=== PATIENT | male | born 1955 | race Caucasian/White ===

== ENCOUNTER 2018-03-03 16:46 | Inpatient (IN) | payer MEDICARE ==
[~2018-03-03] VITALS: Ht 172.7 cm; Wt 79.9 kg
--- NOTE | ~2018-03-03 | CON ---
[place], [place] REPORT OF CONSULTATION NAME: [facility] JR [id number] UN[facility] #: [id number] ROOM: 401 DOCTOR: EVELIN REARDON DPM BIRTHDATE: [birth year] DOS: 03/04/2018 SUBJECTIVE: This 62-year-old white male is seen as consult for evaluation of an infection in his right foot. The patient states he has not seen a doctor in 2 years. He is diabetic, has not taken any medications for 2 years. He states he has had a wound on the bottom of his right foot for 5 months and it has gotten worse over the past week or so. He has been using Neosporin, but it did not improve. His foot became very red, swollen and warm to touch. He denies any recent trauma or injury. The patient is also hypertensive, but has not taken any medication for 2 years. PAST MEDICAL HISTORY: Positive for diabetes and hypertension as well as he has a recent diabetic foot infection. ALLERGIES: LATEX and PENICILLINS. CURRENT MEDICATIONS: Include Lovenox, Glucophage, Zestril, K-Phos, clindamycin, insulin, Catapres, Zofran. OBJECTIVE: Upon lower extremity physical examination, DP pedal pulses are palpable and PT pedal pulses mildly decreased. Hair growth is present on both feet. Diminished sensation is seen in both feet at this time. This is consistent with neuropathy. The patient has edema and erythema noted to the first MPJ right foot, both dorsally and plantarly. This erythema extends dorsally to the second MPJ and dorsal forefoot. There is a wound noted at the medial first metatarsal as well as plantar first metatarsal head. There is sinus tract noted from the medial wound to the dorsal forefoot and there is a sinus tract down to bone from the plantar wound down to the sesamoid and first metatarsal head. There is some mild purulent drainage noted. There is no significant malodor. There is no necrotic or gangrenous tissue. No crepitation tissues to palpation. His MRI is still pending. White blood cell count was down to 9.3 today. The patient is afebrile. ASSESSMENT: Diabetes; diabetic foot ulcer, right foot with infection; probable osteomyelitis. PLAN: Consult is performed. I discussed with the patient that he has an infection in his right foot. He needs to go to surgery for incision of the area; drainage of any abscess; bone biopsy and flushing out the area. This gives him the best chance of reducing complications such as further surgery and amputation. I discussed if he does not do this, he puts himself at risk for limb loss, sepsis, and loss of life. He is agreeable to the surgery. We will try to set this up today. He has not eaten since 08:30. We will set him up for the above-mentioned procedure and will follow up with him over the weekend. Thank you for the opportunity to take part in care of this patient. [place], [place] REPORT OF CONSULTATION NAME: LILA DANIELS JR UNIT #: [id number] ROOM: [facility] DOCTOR: EVELIN REARDON DPM BIRTHDATE: [birth year] EVELIN REARDON DPM CM:CONSTR:REPORT OF CONSULTATION 1203 03/04/18 1417 interface
--- NOTE | ~2018-03-03 | PR ---
[place], [place] PROGRESS NOTE NAME: [id number] UN[facility] #: [id number] ROOM: 401 DOCTOR: EVELIN REARDON DPM BIRTHDATE: [birth year] DOS: 03/07/2018 SUBJECTIVE: This patient is seen postop day #3 status post incision and drainage, bone biopsy, right foot. He states he is feeling well, only time he gets pain is when they change the bandage. Denies fever, chills, nausea, vomiting or night sweats. OBJECTIVE: Upon removal of the bandage and the packing. There is no purulent drainage. There is minimal serous drainage. There is continued decreased in edema and erythema. No increased temperature. The foot is progressing nicely at this time. Incision sites are clean and granular with no necrotic tissue. ASSESSMENT: Postoperative day #3 incision and drainage, bone biopsy, right foot; improving infection, right foot; osteomyelitis. PLAN: Packing and dressing is changed. Continue partial weightbearing on the right foot with a walker. Again, when he is discharged, change the packing once daily with a dry dressing. We will follow him up as an outpatient if he gets discharged today. If not, we will see him tomorrow in the hospital. EVELIN REARDON DPM CM:PNTRANS [phone] EVELIN REARDON DPM 03/07/18 1403 interface
--- NOTE | ~2018-03-03 | PR ---
[place], [place] PROGRESS NOTE NAME: LILA DANIELS JR UNIT #: [id number] ROOM: 401 DOCTOR: ALLISON VENTURAFEBRUARY BIRTHDATE: [birth year] DOS: SUBJECTIVE: The patient is a 62-year-old male who is being followed for right foot osteomyelitis and diabetic foot infection with group B strep bacteremia. Group B has grown from his wound cultures. He is on vancomycin. He has a penicillin allergy, but does not know what his reaction is. He only states that he would if he took it. What he is basing that on, he does not know. So, he is tolerating the vancomycin without issues. Denies fevers, chills, nausea, vomiting or diarrhea. No rash or itch. No cough or shortness of breath. LABORATORY DATA: No labs done today. Last vancomycin trough was 15.6. Repeat blood cultures from remained sterile. CURRENT MEDICATIONS: Lovenox, Glucophage, vancomycin, Zestril, K-phos, Humalog, Catapres, Restoril, Zofran, milk of mag, Dulcolax, Danevang, and Tylenol. PHYSICAL EXAMINATION: VITAL SIGNS: Temperature 98.2, pulse 88, respirations 20, BP 182/86. GENERAL: Alert and oriented 62-year-old male in no acute distress. HEENT: Normocephalic. NECK: Supple. LUNGS: Clear to auscultation bilaterally. Respirations even and unlabored. HEART: Regular rhythm. No murmur appreciated. ABDOMEN: Soft and nondistended. EXTREMITIES: No edema. Right foot is dressed, wearing a fracture shoe. SKIN: Warm, dry, free of rashes. ASSESSMENT: Right foot osteomyelitis and diabetic foot infection, status post surgical debridement, currently on IV vancomycin. He also had a group B strep bacteremia. PLAN: We will continue the IV vancomycin and anticipate 6 weeks of IV antibiotics, needs to have a PICC line placed. Case discussed with Dr. Mara Charlton. FEBRUARY AUDREY COOPER [place], [place] PROGRESS NOTE NAME: LILA DANIELS JR UNIT #: [id number] ROOM: [facility] DOCTOR: ALLISON VENTURA,FEBRUARY BIRTHDATE: [birth year] MARA CHARLTON MD CM:PNTRANS 55 [phone] ALLISON VENTURA 03/06/182049 interface
--- NOTE | ~2018-03-03 | PR ---
[place], [place] PROGRESS NOTE NAME: LILA DANIELS JR UNIT #: [id number] ROOM: 401 DOCTOR: NUHA GORMAN MD BIRTHDATE: [birth year] DOS: 03/08/2018 SUBJECTIVE: The patient denies having any fever, chills, nausea, vomiting. He is upset about his placement and is quite abusive. He had his PICC line inserted in his right upper arm. No pain around the site. PHYSICAL EXAMINATION: GENERAL: Alert, oriented x 3, not in acute distress. HEENT: Atraumatic, normocephalic. PERRLA, EOMI. RESPIRATORY: Air entry bilaterally equal. No wheeze or crackles. CARDIOVASCULAR: S1, S2 normal. No murmur, rubs or gallop. ABDOMEN: Soft, nontender, nondistended, bowel sounds present in all 4 quadrants. EXTREMITIES: Right foot dressing in place. Vitals and labs noted. ASSESSMENT AND PLAN: 1. Right foot diabetic foot ulcer with wound cultures positive for group B Strep. 2. Complicated ulcer with group B strep bacteremia. 3. Right first MTP joint septic arthritis, status post I and D and bone biopsy. Cultures negative, pathology pending. Currently on IV vancomycin twice a day for 6 weeks, end date 04/14/2018. Scripts done. PICC line in right arm. Needs CBC, BMP, vancomycin trough, ESR checked at least twice a week. Follow up with [facility] in [place] with mt in 3-4 weeks, currently waiting for placement. Fiona Gorman MD CM:PNTRANS [phone] NUHA GORMAN MD 03/09/18 0039 interface
--- NOTE | ~2018-03-03 | PR ---
[place], [place] PROGRESS NOTE NAME: LILA DANIELS JR [facility] #: [id number] UNIT #: [id number] ROOM: 401 DOCTOR: EVELIN REARDON DPM BIRTHDATE: [birth year] DOS: 03/06/2018 SUBJECTIVE: The patient presents postop day #2 from incision and drainage of abscess and bone biopsy, right foot. The patient states he has some pain with dressing changes, but overall very little pain in the right foot. Denies fever, chills, nausea, vomiting or night sweats. He is eating well and really states he feels good. OBJECTIVE: Upon removal of the dressing and the packing there is no purulent drainage. There is still some low grade edema and erythema, but significantly reduced from Wednesday. There is again no purulent drainage, no malodor, no signs of remaining abscess. Wounds are clean at this time. ASSESSMENT: Postop day #2 of I and D, bone biopsy of right foot, improving infection of right foot and osteomyelitis of right foot. PLAN: Packing and dressing is changed. Continue with partial weightbearing on the right foot with a walker. Continue with twice daily dressing changes for now. Once he is discharged, he could be once a day IV antibiotics per Infectious Disease. We will follow up tomorrow for re-evaluation. EVELIN REARDON DPM CM:PNTRANS [phone] EVELIN REARDON DPM 03/06/18 2221 interface
--- NOTE | ~2018-03-03 | PR ---
[place], [place] PROGRESS NOTE NAME: LILA DANIELS JR [facility] #: [id number] UNIT #: [id number] ROOM: 401 DOCTOR: TIFFANIE RAMOS DPM BIRTHDATE: [birth year] DOS: 03/08/2018 SUBJECTIVE: The patient was seen for followup post I and D with bone biopsy, right foot. The patient is resting comfortably in bed. OBJECTIVE: Upon removal of packing and dressing, there are no signs of purulent drainage or foul odor. Decreased erythema and edema. No signs of necrotic tissue. No signs of return of abscess, much improved since my last visit with the patient. ASSESSMENT: Post incision and drainage of abscess, right foot. PLAN: Packing and dressing changes visit. Continue partial weightbearing. Continue local wound care, continue antibiotics per Infectious Disease. The patient is waiting to be discharged. TIFFANIE RAMOS DPM CM:PNTRANS [phone] TIFFANIE RAMOS DPM 03/08/18 1311 interface
--- NOTE | ~2018-03-03 | PR ---
[place], [place] PROGRESS NOTE NAME[id number] UNIT #: [id number] ROOM: 401 DOCTOR: TIFFANIE RAMOS DPM BIRTHDATE: [birth year] DOS: 03/05/2018 SUBJECTIVE: The patient presents postop incision and drainage with bone biopsy, right foot. The patient is resting comfortably in bed. OBJECTIVE: Upon removal of the dressing and packing, there is mild erythema still noted to the dorsal, medial and plantar right foot with mild edema. Upon removal of packing, there are no signs of purulent drainage or foul odor. No return of abscess at this point. ASSESSMENT: Post-incision and drainage with bone biopsy, right foot. PLAN: Change dressing and packing this visit. Ordered 0.5 inch plain packing with wet-to-dry dressing to be performed twice daily. Ordered a surgical shoe and walker with limited weight to the right foot. Antibiotics per Infectious Disease. The patient will be seen tomorrow by Dr. Crook. TIFFANIE RAMOS DPM CM:MORE [phone] TIFFANIE RAMOS DPM 03/05/18 1226 interface
--- NOTE | ~2018-03-03 | O ---
[place], [place] OPERATIVE NOTE NAME: [id number] UN[facility] #: [id number] ROOM: 401 DOCTOR: ALEXYS MAKIEVELIN BIRTHDATE: [birth year] DOS: 03/04/2018 INDICATIONS: The patient was seen in the preoperative area prior to the surgery. I discussed with him the procedure, which would include incision and drainage of abscess with bone biopsy of the right foot. I discussed with him the results of the MRI, which showed an abscess at the dorsal distal first intermetatarsal space as well as osseous changes in the plantar first metatarsal consistent with osteomyelitis. I discussed the indications for the surgery as well as pros and cons of the surgery. I also discussed possible complications. We then proceeded with the surgery. SURGEON: Evelin Reardon DPM PREOPERATIVE DIAGNOSES: Abscess, osteomyelitis infection, right foot; chronic diabetic foot ulcer, plantar right first metatarsal. POSTOPERATIVE DIAGNOSES: Abscess, osteomyelitis infection, right foot; chronic diabetic foot ulcer, plantar right first metatarsal. PROCEDURE: Incision and drainage of abscess, right foot with bone biopsy, right first metatarsal. ANESTHESIA: LMAC. INJECTABLES: 10 mL of 0.5% Marcaine plain. ESTIMATED BLOOD LOSS: 5 mL. PATHOLOGY: Bone, right first metatarsal and bone cultures, right foot. COMPLICATIONS: None. DESCRIPTION OF PROCEDURE: After proper preoperative evaluation, the patient was brought in the OR and placed on the OR table in supine position. Attention was directed to the right foot where there was noted be a large area of erythema, fluctuance and swelling at the dorsal distal right first intermetatarsal space. There was an ulceration to medial right first metatarsal as well as plantar right first metatarsal head. Purulent drainage was coming from the medial wound. At this time, anesthesia was administered per anesthesia record. A 10 mL of 0.5% Marcaine plain was injected proximal to the infected area in a field block fashion. The area was prepped and draped in usual sterile manner. Right foot was lowered to surgical field. Attention was directed to the medial wound at the distal first metatarsal on the right foot where there was noted to be purulent drainage. Using a [place] elevator, this wound was probed and this wound did probe distal and dorsal towards the dorsal first intermetatarsal space. Next, using a 15 blade, a 4 cm incision was made overlying the dorsal first intermetatarsal space. There was found to be about 3-5 mL of purulence in the area. This was obviously drained. An incision was made over the medial ulceration because it tracked somewhat plantarly as well as proximally. Attention was directed to plantar right first metatarsal where there was a sinus [place], [place] OPERATIVE NOTE NAME: LILA DANIELS JR UNIT #: [id number] ROOM: [facility] DOCTOR: ALEXYS MAKI,EVELIN BIRTHDATE: [birth year] tract noted down to the level of the first metatarsal head and it tracked distally and proximally. At this time, about 6-7 cm linear incision was made and the area was incised. There was some mild purulence noted to plantar first metatarsal head as well as going distally towards the toe. At this time cultures were done of the first metatarsal and will be sent for Gram stain, culture and sensitivity, aerobic and anaerobic as well as fungal. A Nato-Cut needle was used and bone biopsy was done of the plantar first metatarsal head and the bone was noted to be soft in nature, most likely consistent with osteomyelitis. Next, using a pulse district resource officer 3 liters of normal saline was irrigated throughout the wounds in the right foot. An 0.5 inch plain Nu Gauze packing was applied to the wounds in the right foot, followed by 4 x 4s, ABD, Kerlix and Skinny wrap. Vascularity was established to the right great toe and right second toe throughout the whole procedure. The patient tolerated procedure and anesthesia well and left the OR with vital signs stable and intact and transported to the recovery room. Infectious Disease was consulted for IV antibiotics. He will most likely need long-term IV antibiotics for the osteomyelitis. We will follow him up tomorrow for reevaluation or sooner if there are any issues. EVELIN REARDON DPM CM:OPRECORD:OPERATIVE NOTE [phone] EVELIN REARDON DPM 03/04/181723 interface
[2018-03-03 17:00] VITALS: BP 189/94
[2018-03-03 20:00] VITALS: BP 161/87
[2018-03-03 20:24] LABS: BASO # 0.1 10*3/uL (0.0-0.1); BASO % 0.5 % (0.0-1.0); EOS # 0.1 10*3/uL (0.0-0.4); EOS % 1.2 % (1.0-4.0); HEMATOCRIT 44.2 % (42.0-52.0); HEMOGLOBIN 14.9 g/dl (14.0-18.0); LYMPH % 9.1 % (27.0-41.0); MEAN CELL VOLUME 82.8 fl (80.0-94.0); MEAN CORPUSCULAR HGB 27.9 pg (27.0-31.0); MEAN CORPUSCULAR HGB CONC 33.7 g/dl (33.0-37.0); MEAN PLATELET VOLUME 9.2 fl (9.6-12.3); MONO # 0.8 10*3/uL (0.1-1.0); MONO % 7.3 % (3.0-9.0); NEUT # 9.2 10*3/uL (2.3-7.9); NEUT % 81.5 % (47.0-73.0); PLATELET COUNT AUTOMATED 454 10*3/uL (130-400); RED BLOOD COUNT 5.34 10*6/uL (4.50-5.90); RED CELL DISTRI WIDTH 13.4 % (0-14.5); WHITE BLOOD COUNT 11.3 10*3/uL (4.8-10.8)
[2018-03-03 20:32] LABS: INTERNATIONAL NORM RATIO 1.1 (2.0-3.5)
[2018-03-03 20:40] LABS: ALBUMIN 2.4 gm/dl (3.1-4.5); ALKALINE PHOSPHATASE 108 U/L (45-117); BUN 16 mg/dl (7-24); CHLORIDE 98 mmol/L (98-107); CREATININE 0.95 mg/dL (0.70-1.30); PHOSPHOROUS 2.2 mg/dL (2.5-4.9); POTASSIUM 3.7 mmol/L (3.5-5.1); SGOT/AST 15 IU/L (3-35); SGPT/ALT 26 U/L (12-78); SODIUM 135 mmol/L (136-145); TOTAL PROTEIN 6.8 gm/dL (6.4-8.2)
[2018-03-04] VITALS (9 sets, daily range): BP systolic 126–163; BP diastolic 76–90
[2018-03-04 06:14] LABS: BASO # 0.1 10*3/uL (0.0-0.1); BASO % 0.7 % (0.0-1.0); EOS # 0.2 10*3/uL (0.0-0.4); EOS % 1.9 % (1.0-4.0); HEMATOCRIT 42.2 % (42.0-52.0); HEMOGLOBIN 13.7 g/dl (14.0-18.0); LYMPH # 1.6 10*3/uL (1.3-4.4); LYMPH % 16.9 % (27.0-41.0); MEAN CELL VOLUME 84.6 fl (80.0-94.0); MEAN CORPUSCULAR HGB 27.5 pg (27.0-31.0); MEAN CORPUSCULAR HGB CONC 32.5 g/dl (33.0-37.0); MEAN PLATELET VOLUME 9.3 fl (9.6-12.3); MONO % 10.1 % (3.0-9.0); NEUT # 6.8 10*3/uL (2.3-7.9); NEUT % 69.9 % (47.0-73.0); PLATELET COUNT AUTOMATED 426 10*3/uL (130-400); RED BLOOD COUNT 4.99 10*6/uL (4.50-5.90); RED CELL DISTRI WIDTH 13.5 % (0-14.5); WHITE BLOOD COUNT 9.7 10*3/uL (4.8-10.8)
[2018-03-04 06:27] LABS: BUN 13 mg/dl (7-24); CHLORIDE 102 mmol/L (98-107); CHOLESTEROL 113 mg/dL (<200); CREATININE 0.76 mg/dL (0.70-1.30); HDL CHOLESTEROL 16 mg/dl (40-60); LDL CHOLESTEROL 71 mg/dL (9-159); POTASSIUM 3.8 mmol/L (3.5-5.1); SODIUM 137 mmol/L (136-145); TRIGLYCERIDES 131 mg/dl (<150); VLDL CHOLESTEROL 26 mg/dL (6-40)
[2018-03-05] VITALS: BP 151/77
[2018-03-05 08:00] VITALS: BP 157/81
[2018-03-05 12:00] VITALS: BP 148/82
[2018-03-05 16:00] VITALS: BP 154/77
[2018-03-05 20:00] VITALS: BP 132/84
[2018-03-06] VITALS: BP 144/75
[2018-03-06 08:00] VITALS: BP 148/77
[2018-03-06 12:00] VITALS: BP 150/76
[2018-03-06 16:00] VITALS: BP 182/86
[2018-03-06 20:00] VITALS: BP 178/85
[2018-03-07] VITALS: BP 180/75
[2018-03-07 07:11] LABS: BASO # 0.1 10*3/uL (0.0-0.1); BASO % 0.8 % (0.0-1.0); EOS # 0.4 10*3/uL (0.0-0.4); EOS % 4.5 % (1.0-4.0); HEMATOCRIT 40.1 % (42.0-52.0); HEMOGLOBIN 13.1 g/dl (14.0-18.0); LYMPH # 1.6 10*3/uL (1.3-4.4); LYMPH % 17.3 % (27.0-41.0); MEAN CELL VOLUME 84.6 fl (80.0-94.0); MEAN CORPUSCULAR HGB 27.6 pg (27.0-31.0); MEAN CORPUSCULAR HGB CONC 32.7 g/dl (33.0-37.0); MEAN PLATELET VOLUME 9.2 fl (9.6-12.3); MONO # 0.6 10*3/uL (0.1-1.0); MONO % 6.4 % (3.0-9.0); NEUT # 6.2 10*3/uL (2.3-7.9); PLATELET COUNT AUTOMATED 506 10*3/uL (130-400); RED BLOOD COUNT 4.74 10*6/uL (4.50-5.90); RED CELL DISTRI WIDTH 13.7 % (0-14.5)
[2018-03-07 07:31] LABS: CHLORIDE 103 mmol/L (98-107); POTASSIUM 3.8 mmol/L (3.5-5.1); SODIUM 138 mmol/L (136-145)
[2018-03-07 07:40] LABS: BUN 8 mg/dl (7-24); CREATININE 0.81 mg/dL (0.70-1.30)
[2018-03-07 08:00] VITALS: BP 164/72
[2018-03-07 12:00] VITALS: BP 154/76
[2018-03-07 14:00] VITALS: BP 164/72
[2018-03-07 16:00] VITALS: BP 155/75
[2018-03-07 20:00] VITALS: BP 184/90
[2018-03-08] VITALS: BP 150/74
[2018-03-08 08:00] VITALS: BP 178/91
[2018-03-08 14:00] VITALS: BP 162/72
[2018-03-08 17:04] VITALS: BP 173/87
[2018-03-08] MEDS ORDERED: HYDROCODONE-AC1 EAC1 PO (18:10)
[2018-03-08] MEDS ORDERED: GLUCOPHAGE500 MG PO (18:10)
[2018-03-08] MEDS ORDERED: LISINOPRIL20 MG PO (18:10)
[2018-03-08 20:00] VITALS: BP 180/85
[2018-03-09 06:30] VITALS: BP 140/70
[2018-03-09 08:00] VITALS: BP 168/84
[2018-03-14] MEDS ORDERED: GLUCOPHAGE500 M1 PO (08:16)
== END 2018-03-09 08:10 | disposition home or self-care (01) | DRG 628 ==
LOC: 4E 16:46
PROVIDERS: Family Medicine; Internal Medicine
PROC: 0QBN0ZX Excision of Right Metatarsal, Open Approach, Diagnostic (ICD-10-PCS; principal; 2018-03-04)
PROC: 0Y9M0ZZ Drainage of Right Foot, Open Approach (ICD-10-PCS; 2018-03-04)
PROC: 02HV33Z Insertion of Infusion Device into Superior Vena Cava, Percutaneous Approach (ICD-10-PCS; 2018-03-07)
DX: E11.69 Type 2 diabetes mellitus with other specified complication (principal); E43 Unspecified severe protein-calorie malnutrition; M86.171 Other acute osteomyelitis, right ankle and foot; E11.621 Type 2 diabetes mellitus with foot ulcer; M60.073 Infective myositis, right foot; M00.271 Other streptococcal arthritis, right ankle and foot; E87.1 Hypo-osmolality and hyponatremia; L02.611 Cutaneous abscess of right foot; L97.519 Non-pressure chronic ulcer of other part of right foot with unspecified severity; I10 Essential (primary) hypertension; B95.1 Streptococcus, group B, as the cause of diseases classified elsewhere; E11.65 Type 2 diabetes mellitus with hyperglycemia; D47.3 Essential (hemorrhagic) thrombocythemia; D64.9 Anemia, unspecified; E55.9 Vitamin D deficiency, unspecified; Z68.26 Body mass index [BMI] 26.0-26.9, adult; Z87.891 Personal history of nicotine dependence; Z79.899 Other long term (current) drug therapy; Z88.0 Allergy status to penicillin; Z91.040 Latex allergy status

== ENCOUNTER 2018-03-29 09:38 | Emergency (ER) | payer MEDICARE ==
[~2018-03-29] VITALS: Ht 172.7 cm; Wt 80.7 kg
[~2018-03-29 09:38] MED LIST: GLUCOPHAGE500 M1 PO; GLUCOPHAGE500 MG PO; HYDROCODONE-AC1 EAC1 PO; LISINOPRIL20 MG PO
[2018-03-29 10:15] LABS: BASO # 0.1 10*3/uL (0.0-0.1); BASO % 1.1 % (0.0-1.0); EOS # 0.4 10*3/uL (0.0-0.4); EOS % 4.9 % (1.0-4.0); HEMATOCRIT 44.4 % (42.0-52.0); HEMOGLOBIN 14.5 g/dl (14.0-18.0); LYMPH # 1.3 10*3/uL (1.3-4.4); LYMPH % 15.3 % (27.0-41.0); MEAN CELL VOLUME 81.9 fl (80.0-94.0); MEAN CORPUSCULAR HGB 26.8 pg (27.0-31.0); MEAN CORPUSCULAR HGB CONC 32.7 g/dl (33.0-37.0); MEAN PLATELET VOLUME 8.9 fl (9.6-12.3); MONO # 0.5 10*3/uL (0.1-1.0); MONO % 5.3 % (3.0-9.0); NEUT # 6.2 10*3/uL (2.3-7.9); PLATELET COUNT AUTOMATED 352 10*3/uL (130-400); RED BLOOD COUNT 5.42 10*6/uL (4.50-5.90); RED CELL DISTRI WIDTH 13.8 % (0-14.5); WHITE BLOOD COUNT 8.5 10*3/uL (4.8-10.8)
[2018-03-29 10:26] LABS: BUN 14 mg/dl (7-24); CHLORIDE 100 mmol/L (98-107); CREATININE 0.98 mg/dL (0.70-1.30); POTASSIUM 4.1 mmol/L (3.5-5.1); SODIUM 138 mmol/L (136-145)
[2018-03-29] MEDS ORDERED: LOPRESSOR25 MG PO (10:58)
== END 2018-03-29 12:03 | disposition home or self-care (01) ==
LOC: ED 09:38
PROVIDERS: Emergency Medicine
DX: I10 Essential (primary) hypertension (principal); E11.621 Type 2 diabetes mellitus with foot ulcer; M86.9 Osteomyelitis, unspecified; Z88.0 Allergy status to penicillin; Z79.899 Other long term (current) drug therapy; Z87.891 Personal history of nicotine dependence

== ENCOUNTER 2018-04-04 21:44 | Inpatient (IN) | payer MEDICARE ==
[~2018-04-04] VITALS: Ht 172.7 cm; Wt 78.3 kg
--- NOTE | ~2018-04-04 | CON ---
[place], [place] REPORT OF CONSULTATION NAME: LILA DANIELS JR UNIT #: [id number] ROOM: 512 DOCTOR: TIFFANIE RAMOS DPM BIRTHDATE: [birth year] DOS: 04/05/2018 SUBJECTIVE: The patient presents as 62-year-old male. Dr. Crook has been treating post incision and drainage of the right foot. He was most recently seen at the office several days ago for packing change. The patient is on IV antibiotics per infectious disease. PAST MEDICAL HISTORY: Diabetic ulcer, right foot; essential hypertension; myositis; normocytic anemia; osteomyelitis; septic arthritis; severe protein-calorie malnutrition; type 2 diabetes; hyperglycemia; vitamin D deficiency. PAST SURGICAL HISTORY: Incision and drainage, right foot with bone biopsy. SOCIAL HISTORY: Former smoker, approximately 85-ggle-fdde history. Denies illicit drug use or alcohol. FAMILY HISTORY: Father healthy at age 92. Mother at age 59 MD. ALLERGIES: PENICILLIN. PHYSICAL EXAMINATION: LOWER EXTREMITY EXAMINATION: Pedal pulses palpable. There is an ulceration plantar aspect, first right MPJ is full thickness to and through subcutaneous tissue level. No signs of abscess, no signs of purulent drainage or foul odor. There is mild maceration of tissue noted, improved since my last visit with the patient in house post-surgery. ASSESSMENT: Post incision and drainage of abscess with wound, plantar right foot. PLAN: Evaluation and management, half inch plain packing with wet to dry dressing applied and order written to continue daily. Continue antibiotics per infectious disease and we will follow the patient while he is inhouse. TIFFANIE RAMOS DPM CM:CONSTR:REPORT OF CONSULTATION 1202 04/05/18 3815 interface
[~2018-04-04 21:44] MED LIST changes: +LOPRESSOR25 MG PO
[2018-04-04 21:46] VITALS: BP 237/121
[2018-04-04 22:06] VITALS: BP 210/108
[2018-04-04 22:10] LABS: BASO # 0.1 10*3/uL (0.0-0.1); BASO % 1.1 % (0.0-1.0); EOS # 0.4 10*3/uL (0.0-0.4); EOS % 4.1 % (1.0-4.0); HEMATOCRIT 45.2 % (42.0-52.0); LYMPH % 18.8 % (27.0-41.0); MEAN CELL VOLUME 82.2 fl (80.0-94.0); MEAN CORPUSCULAR HGB 27.3 pg (27.0-31.0); MEAN CORPUSCULAR HGB CONC 33.2 g/dl (33.0-37.0); MONO # 0.7 10*3/uL (0.1-1.0); MONO % 6.8 % (3.0-9.0); NEUT # 7.2 10*3/uL (2.3-7.9); NEUT % 68.8 % (47.0-73.0); PLATELET COUNT AUTOMATED 369 10*3/uL (130-400); RED CELL DISTRI WIDTH 14.1 % (0-14.5); WHITE BLOOD COUNT 10.4 10*3/uL (4.8-10.8)
[2018-04-04 22:37] LABS: ALBUMIN 3.5 gm/dl (3.1-4.5); ALKALINE PHOSPHATASE 124 U/L (45-117); BUN 17 mg/dl (7-24); CHLORIDE 101 mmol/L (98-107); CREATININE 0.88 mg/dL (0.70-1.30); POTASSIUM 4.2 mmol/L (3.5-5.1); SGOT/AST 13 IU/L (3-35); SGPT/ALT 26 U/L (12-78); SODIUM 138 mmol/L (136-145); TOTAL PROTEIN 7.2 gm/dL (6.4-8.2)
[2018-04-04 22:40] LABS: TROPONIN I < 0.015 ng/ml (<0.045)
[2018-04-04 22:45] VITALS: BP 192/108
[2018-04-04 23:15] VITALS: BP 190/100
[2018-04-05] VITALS: BP 163/76
[2018-04-05 04:40] LABS: BASO # 0.1 10*3/uL (0.0-0.1); BASO % 1.1 % (0.0-1.0); EOS # 0.4 10*3/uL (0.0-0.4); EOS % 4.8 % (1.0-4.0); HEMATOCRIT 42.4 % (42.0-52.0); HEMOGLOBIN 13.9 g/dl (14.0-18.0); LYMPH # 1.7 10*3/uL (1.3-4.4); LYMPH % 20.1 % (27.0-41.0); MEAN CELL VOLUME 81.4 fl (80.0-94.0); MEAN CORPUSCULAR HGB 26.7 pg (27.0-31.0); MEAN CORPUSCULAR HGB CONC 32.8 g/dl (33.0-37.0); MONO # 0.5 10*3/uL (0.1-1.0); MONO % 6.3 % (3.0-9.0); NEUT # 5.7 10*3/uL (2.3-7.9); NEUT % 67.3 % (47.0-73.0); PLATELET COUNT AUTOMATED 322 10*3/uL (130-400); RED BLOOD COUNT 5.21 10*6/uL (4.50-5.90); RED CELL DISTRI WIDTH 14.3 % (0-14.5); WHITE BLOOD COUNT 8.5 10*3/uL (4.8-10.8)
[2018-04-05 04:56] LABS: ALKALINE PHOSPHATASE 113 U/L (45-117); BUN 13 mg/dl (7-24); CHLORIDE 103 mmol/L (98-107); CREATININE 0.85 mg/dL (0.70-1.30); PHOSPHOROUS 2.9 mg/dL (2.5-4.9); POTASSIUM 3.8 mmol/L (3.5-5.1); SGOT/AST 12 IU/L (3-35); SGPT/ALT 23 U/L (12-78); SODIUM 139 mmol/L (136-145); TOTAL PROTEIN 6.6 gm/dL (6.4-8.2)
[2018-04-05 04:57] LABS: FREE T4 1.22 ng/dl (0.76-1.46)
[2018-04-05 08:00] VITALS: BP 164/88
[2018-04-05 08:17] LABS: VITAMIN D, 25-HYDROXY 18.6 ng/mL (30-100)
[2018-04-05] MEDS ORDERED: VANCOMYCIN HCL1 GM IV (11:12)
[2018-04-05 12:00] VITALS: BP 160/90
[2018-04-05] MEDS ORDERED: LISINOPRIL20 MG PO (12:20)
[2018-04-05] MEDS ORDERED: LOPRESSOR25 MG PO (12:20)
[2018-04-05] MEDS ORDERED: GLUCOPHAGE500 M1 PO (12:41)
== END 2018-04-05 13:11 | disposition home or self-care (01) | DRG 304 ==
LOC: ED 21:44 → EDHOLD 23:01 → 5E 23:01
PROVIDERS: Internal Medicine Hospice and Palliative Medicine; Student in an Organized Health Care Education/Training Program
DX: I16.0 Hypertensive urgency (principal); E43 Unspecified severe protein-calorie malnutrition; D72.1 Eosinophilia; M86.271 Subacute osteomyelitis, right ankle and foot; E11.621 Type 2 diabetes mellitus with foot ulcer; E11.65 Type 2 diabetes mellitus with hyperglycemia; L97.516 Non-pressure chronic ulcer of other part of right foot with bone involvement without evidence of necrosis; D72.810 Lymphocytopenia; R74.8 Abnormal levels of other serum enzymes; E11.69 Type 2 diabetes mellitus with other specified complication; I10 Essential (primary) hypertension; E55.9 Vitamin D deficiency, unspecified; Z87.891 Personal history of nicotine dependence; Z82.49 Family history of ischemic heart disease and other diseases of the circulatory system; Z88.0 Allergy status to penicillin; Z79.899 Other long term (current) drug therapy; Z68.26 Body mass index [BMI] 26.0-26.9, adult

== ENCOUNTER → 2018-05-04 | Outpatient (CLI) | payer MEDICARE ==
[~2018-05-04] MED LIST changes: +VANCOMYCIN HCL1 GM IV
== END | disposition home or self-care (01) ==
LOC: RESCLI 00:33
DX: I10 Essential (primary) hypertension (principal); E11.618 Type 2 diabetes mellitus with other diabetic arthropathy; M86.9 Osteomyelitis, unspecified; Z88.0 Allergy status to penicillin

== ENCOUNTER → 2018-11-03 | Outpatient (CLI) | payer MEDICARE | END | disposition home or self-care (01) | LOC: RESCLI 01:18 | DX: I10 Essential (primary) hypertension (principal); S91.309A Unspecified open wound, unspecified foot, initial encounter; E11.618 Type 2 diabetes mellitus with other diabetic arthropathy; Z76.89 Persons encountering health services in other specified circumstances; Z79.84 Long term (current) use of oral hypoglycemic drugs; Z79.899 Other long term (current) drug therapy; Z88.0 Allergy status to penicillin; Z87.891 Personal history of nicotine dependence; X58.XXXA Exposure to other specified factors, initial encounter; Y93.89 Activity, other specified; Y92.89 Other specified places as the place of occurrence of the external cause; Y99.8 Other external cause status ==

== ENCOUNTER → 2019-01-25 | Outpatient (CLI) | payer MEDICARE ==
[2019-01-25 16:22] LABS: BILIRUBIN NEGATIVE (NEGATIVE); BLOOD NEGATIVE (NEGATIVE); CLARITY CLEAR (CLEAR); COLOR YELLOW (YELLOW); GLUCOSE 3+ (NEGATIVE); KETONE NEGATIVE (NEGATIVE); LEUKO ESTERASE NEGATIVE (NEGATIVE); NITRITE NEGATIVE (NEGATIVE); UROBILINOGEN 0.2 E.U./dl (0.2-1.0)
[2019-01-25 16:30] LABS: BACTERIA TRACE; EPITHELIAL CELLS 0-2; HYALINE CAST 0-2; URINE CREATININE RANDOM 82.1 mg/dL; WBC 0-2 wbc/hpf (0-5)
[2019-01-25 16:54] LABS: ALBUMIN 3.6 gm/dl (3.1-4.5); ALKALINE PHOSPHATASE 88 U/L (45-117); BUN 26 mg/dl (7-24); CHLORIDE 104 mmol/L (98-107); CHOLESTEROL 146 mg/dL (<200); CREATININE 1.14 mg/dL (0.70-1.30); HDL CHOLESTEROL 25 mg/dl (40-60); LDL CHOLESTEROL 51 mg/dL (9-159); POTASSIUM 4.4 mmol/L (3.5-5.1); SGOT/AST 12 IU/L (3-35); SGPT/ALT 34 U/L (12-78); SODIUM 140 mmol/L (136-145); TOTAL PROTEIN 7.6 gm/dL (6.4-8.2); TRIGLYCERIDES 350 mg/dl (<150); VLDL CHOLESTEROL 70 mg/dL (6-40)
[2019-01-25 17:14] LABS: VITAMIN D, 25-HYDROXY 19.1 ng/mL (30-100)
== END | disposition home or self-care (01) ==
LOC: RESCLI 02:48 → LAB 02:48 → RESCLI 08:36
PROVIDERS: Student in an Organized Health Care Education/Training Program
DX: S91.309A Unspecified open wound, unspecified foot, initial encounter (principal); E11.618 Type 2 diabetes mellitus with other diabetic arthropathy; I10 Essential (primary) hypertension; E66.3 Overweight; E55.9 Vitamin D deficiency, unspecified; Z79.899 Other long term (current) drug therapy; Z88.0 Allergy status to penicillin; Z76.89 Persons encountering health services in other specified circumstances; X58.XXXA Exposure to other specified factors, initial encounter; Y93.89 Activity, other specified; Y92.89 Other specified places as the place of occurrence of the external cause; Y99.8 Other external cause status

== ENCOUNTER → 2019-07-19 | Outpatient (CLI) | payer MEDICARE | END | disposition home or self-care (01) | LOC: RESCLI 00:59 | DX: I10 Essential (primary) hypertension (principal); E11.618 Type 2 diabetes mellitus with other diabetic arthropathy; G62.9 Polyneuropathy, unspecified; E66.3 Overweight; Z79.899 Other long term (current) drug therapy; Z87.891 Personal history of nicotine dependence ==

== ENCOUNTER → 2019-11-01 | Outpatient (CLI) | payer MEDICARE | END | disposition home or self-care (01) | LOC: RESCLI 01:13 | DX: Z13.39 Encounter for screening examination for other mental health and behavioral disorders (principal); E11.618 Type 2 diabetes mellitus with other diabetic arthropathy; G62.9 Polyneuropathy, unspecified; I10 Essential (primary) hypertension; E55.9 Vitamin D deficiency, unspecified; E66.3 Overweight; Z79.84 Long term (current) use of oral hypoglycemic drugs; Z79.899 Other long term (current) drug therapy; Z88.0 Allergy status to penicillin; Z87.891 Personal history of nicotine dependence ==

== ENCOUNTER → 2020-05-30 | Outpatient (CLI) | payer MEDICARE | END | disposition home or self-care (01) | LOC: RESCLI 00:41 | DX: E11.618 Type 2 diabetes mellitus with other diabetic arthropathy (principal); E55.9 Vitamin D deficiency, unspecified; I10 Essential (primary) hypertension; G62.9 Polyneuropathy, unspecified; E78.1 Pure hyperglyceridemia; R63.4 Abnormal weight loss; R68.81 Early satiety; E66.3 Overweight; Z79.899 Other long term (current) drug therapy; Z87.891 Personal history of nicotine dependence; Z98.890 Other specified postprocedural states; Z88.0 Allergy status to penicillin ==

== ENCOUNTER → 2020-07-31 | Outpatient (CLI) | payer MEDICARE ==
[2020-07-31 09:31] LABS: BASO # 0.1 10*3/uL (0.0-0.1); BASO % 0.8 % (0.0-1.0); EOS # 0.2 10*3/uL (0.0-0.4); EOS % 1.9 % (1.0-4.0); HEMATOCRIT 49.1 % (42.0-52.0); LYMPH # 1.9 10*3/uL (1.3-4.4); LYMPH % 18.1 % (27.0-41.0); MEAN CELL VOLUME 86.3 fl (80.0-94.0); MEAN CORPUSCULAR HGB 27.8 pg (27.0-31.0); MEAN CORPUSCULAR HGB CONC 32.2 g/dl (33.0-37.0); MEAN PLATELET VOLUME 9.1 fl (9.6-12.3); MONO # 0.5 10*3/uL (0.1-1.0); MONO % 5.2 % (3.0-9.0); NEUT # 7.6 10*3/uL (2.3-7.9); NEUT % 73.2 % (47.0-73.0); PLATELET COUNT AUTOMATED 396 10*3/uL (130-400); RED BLOOD COUNT 5.69 10*6/uL (4.50-5.90); RED CELL DISTRI WIDTH 15.4 % (0-14.5); WHITE BLOOD COUNT 10.4 10*3/uL (4.8-10.8)
[2020-07-31 09:47] LABS: ALBUMIN 3.4 gm/dl (3.1-4.5); ALKALINE PHOSPHATASE 85 U/L (45-117); BUN 25 mg/dl (7-24); CHLORIDE 108 mmol/L (98-107); CHOLESTEROL 172 mg/dL (<200); CREATININE 1.17 mg/dL (0.70-1.30); HDL CHOLESTEROL 27 mg/dl (40-60); LDL CHOLESTEROL 89 mg/dL (9-159); POTASSIUM 3.8 mmol/L (3.5-5.1); SGOT/AST 9 IU/L (3-35); SGPT/ALT 20 U/L (12-78); SODIUM 141 mmol/L (136-145); TOTAL PROTEIN 7.3 gm/dL (6.4-8.2); TRIGLYCERIDES 282 mg/dl (<150); VLDL CHOLESTEROL 56 mg/dL (6-40)
== END | disposition home or self-care (01) ==
LOC: LAB 07-30 09:10
PROVIDERS: Student in an Organized Health Care Education/Training Program; ATTEND Internal Medicine Nephrology
DX: E11.618 Type 2 diabetes mellitus with other diabetic arthropathy (principal); E55.9 Vitamin D deficiency, unspecified; E78.1 Pure hyperglyceridemia

== ENCOUNTER → 2020-08-06 | Outpatient (CLI) | payer MEDICARE | END | disposition home or self-care (01) | LOC: RESCLI 00:58 | PROVIDERS: ATTEND Internal Medicine | DX: I10 Essential (primary) hypertension (principal); G62.9 Polyneuropathy, unspecified; E11.618 Type 2 diabetes mellitus with other diabetic arthropathy; E55.9 Vitamin D deficiency, unspecified; M86.9 Osteomyelitis, unspecified; Z79.899 Other long term (current) drug therapy; Z98.890 Other specified postprocedural states; Z87.891 Personal history of nicotine dependence; Z88.0 Allergy status to penicillin ==

== ENCOUNTER 2020-08-19 09:27 | Inpatient (IN) | payer MEDICARE ==
[~2020-08-19] VITALS: Ht 172.7 cm; Wt 126.3 kg
[2020-08-19] VITALS (9 sets, daily range): BP systolic 98–152; BP diastolic 1–73
--- NOTE | 2020-08-19 09:38 | NUR ---
BP NOT WORKING IN TRIAGE
[2020-08-19 10:29] LABS: BASO # 0.1 10*3/uL (0.0-0.1); BASO % 0.5 % (0.0-1.0); EOS # 0.1 10*3/uL (0.0-0.4); EOS % 0.5 % (1.0-4.0); HEMATOCRIT 40.3 % (42.0-52.0); LYMPH # 1.2 10*3/uL (1.3-4.4); LYMPH % 7.1 % (27.0-41.0); MEAN CELL VOLUME 84.5 fl (80.0-94.0); MEAN CORPUSCULAR HGB 28.3 pg (27.0-31.0); MEAN CORPUSCULAR HGB CONC 33.5 g/dl (33.0-37.0); MONO # 1.1 10*3/uL (0.1-1.0); MONO % 6.3 % (3.0-9.0); NEUT # 14.5 10*3/uL (2.3-7.9); NEUT % 85.1 % (47.0-73.0); PLATELET COUNT AUTOMATED 479 10*3/uL (130-400); RED BLOOD COUNT 4.77 10*6/uL (4.50-5.90); RED CELL DISTRI WIDTH 14.2 % (0-14.5)
[2020-08-19 10:40] LABS: ACT PARTIAL THROMBO TIME 29.6 SECONDS (20.0-32.1); INTERNATIONAL NORM RATIO 1.1 (2.0-3.5)
[2020-08-19 10:44] LABS: ALBUMIN 2.7 gm/dl (3.1-4.5); ALKALINE PHOSPHATASE 95 U/L (45-117); BUN 35 mg/dl (7-24); CHLORIDE 100 mmol/L (98-107); CREATININE 1.37 mg/dL (0.70-1.30); POTASSIUM 3.1 mmol/L (3.5-5.1); SGOT/AST 6 IU/L (3-35); SGPT/ALT 14 U/L (12-78); SODIUM 137 mmol/L (136-145)
--- NOTE | 2020-08-19 12:00 | NUR ---
VENUS FROM SURGERY TOOK THE PATIENT AT 1159
--- NOTE | 2020-08-19 12:40 | NUR ---
Occupational Therapy referral received and chart reviewed. Patient was taken for surgery to left foot at 1155 am. OT will recheck at a later time. Neda Sanders OTR/Ranulfo
--- NOTE | 2020-08-19 12:40 | NUR ---
PHYSICAL THERAPY Physical therapy order received, chart reviewed. Patient having surgery on left foot this date. Will follow. Thank you. Sheryl Luna,PT,DPT
--- NOTE | 2020-08-19 15:00 | NUR ---
Time: 150 A 64 year old MALE admitted to 5E under services of ALBA CALIXTO DO. Pt. arrived via ambulatory from ER. Chief complaint: DIABETIC FOOT WOUND. [place]
--- NOTE | 2020-08-19 15:18 | NUR ---
PHYSICAL THERAPY Patient recently returned to room from surgery regarding left foot infection. Patient is currently eating lunch, and requesting PT/OT to return at a later time. Will follow to complete PT evaluation. Thank you. Sheryl Luna,PT,DPT
--- NOTE | 2020-08-19 15:19 | NUR ---
Patient just returned from surgery and is eating lunch. Patient in agreement that OT will evaluate in the morning. Neda Sanders OTR/L
--- NOTE | 2020-08-19 15:45 | NUR ---
PT STATES HE IS HAVING PAIN IN HIS LEFT FOOT. PRN NORCO ADMINISTERED AT THIS TIME.
--- NOTE | 2020-08-19 15:50 | NUR ---
PT STATES NORCO WAS EFFECTIVE.
[2020-08-19] MEDS ORDERED: CYMBALTA30 MG PO (16:25)
[2020-08-19] MEDS ORDERED: COREG6.25 MG PO (16:26)
[2020-08-19] MEDS ORDERED: COZAAR100 MG PO (16:26)
[2020-08-19] MEDS ORDERED: HYDROCHLOROTH12.5 M2 PO (16:27)
[2020-08-19] MEDS ORDERED: INVOKANA300 M1 PO (16:28)
[2020-08-19] MEDS ORDERED: JANUVIA100 MG PO (16:34)
[2020-08-19] MEDS ORDERED: APRESOLINE25 MG PO (16:35)
--- NOTE | 2020-08-19 17:04 | NUR ---
DR. LOUIS NOTIFIED THAT PT'S MED LIST IS UP TO DATE AND ALSO THAT WOUND ORDERS ARE NEEDED.
--- NOTE | 2020-08-19 22:36 | NUR ---
PT MEDICATED WITH PO NORCO FOR C/O PAIN IN L FOOT/ANKLE RATED 7/10. WILL MONITOR. CALL LIGHT IN REACH.
[2020-08-20] VITALS: BP 120/50
--- NOTE | 2020-08-20 02:29 | NUR ---
NS@125 X1 BAG COMPLETE. QUESTIONED WHETHER NS@100 X1 BAG NOW NEEDED TO BE GIVEN RN UNABLE TO PULL FROM [employer] AND WILL NEED TO REORDER. NOT NEEDED PER .
--- NOTE | 2020-08-20 06:19 | NUR ---
NOTIFIED OF +BC FROM 08/19/20 @ 1016 COMING BACK + GPC IN PAIRS/CHAINS. AWARE PT IS CURRENTLY ON IV VANC, IV CLINDAMYCIN, AND IV LEVOFLOXACIN. ALSO MADE AWARE OF PT STATING "THEY TRIED TO PUT ME ON A DIET YESTERDAY AND THAT'S JUST NOT HAPPENING." DISCUSSED PODIATRY'S NOTE STATING POSSIBLE FUTURE WOUND VAC PLACEMENT, BUT NO ORDERS IN AT CURRENT TIME FOR ANY PROCEDURES TODAY. NEW ORDER RECEIVED FOR REGULAR DIET.
[2020-08-20 06:47] LABS: BASO # 0.1 10*3/uL (0.0-0.1); BASO % 0.5 % (0.0-1.0); EOS # 0.1 10*3/uL (0.0-0.4); EOS % 0.8 % (1.0-4.0); HEMATOCRIT 38.7 % (42.0-52.0); LYMPH # 1.2 10*3/uL (1.3-4.4); LYMPH % 8.5 % (27.0-41.0); MEAN CELL VOLUME 86.4 fl (80.0-94.0); MEAN CORPUSCULAR HGB 27.9 pg (27.0-31.0); MEAN CORPUSCULAR HGB CONC 32.3 g/dl (33.0-37.0); MEAN PLATELET VOLUME 9.1 fl (9.6-12.3); MONO # 1.1 10*3/uL (0.1-1.0); MONO % 7.7 % (3.0-9.0); NEUT # 11.8 10*3/uL (2.3-7.9); NEUT % 81.9 % (47.0-73.0); PLATELET COUNT AUTOMATED 449 10*3/uL (130-400); RED BLOOD COUNT 4.48 10*6/uL (4.50-5.90); RED CELL DISTRI WIDTH 14.6 % (0-14.5); WHITE BLOOD COUNT 14.4 10*3/uL (4.8-10.8)
[2020-08-20 07:09] LABS: ALBUMIN 2.2 gm/dl (3.1-4.5); ALKALINE PHOSPHATASE 88 U/L (45-117); CHLORIDE 107 mmol/L (98-107); CHOLESTEROL 103 mg/dL (<200); CREATININE 1.02 mg/dL (0.70-1.30); HDL CHOLESTEROL 15 mg/dl (40-60); LDL CHOLESTEROL 59 mg/dL (9-159); POTASSIUM 3.3 mmol/L (3.5-5.1); SGOT/AST 4 IU/L (3-35); SGPT/ALT 11 U/L (12-78); SODIUM 140 mmol/L (136-145); TOTAL PROTEIN 6.1 gm/dL (6.4-8.2); TRIGLYCERIDES 145 mg/dl (<150); VLDL CHOLESTEROL 29 mg/dL (6-40)
[2020-08-20 07:15] LABS: BUN 24 mg/dl (7-24)
[2020-08-20 07:29] LABS: INTERNATIONAL NORM RATIO 1.1 (2.0-3.5)
[2020-08-20 08:00] VITALS: BP 136/83
--- NOTE | 2020-08-20 08:28 | NUR ---
PHYSICAL THERAPY Nursing screen received and chart reviewed. Physical therapy order received. Will follow to complete PT evaluation. Thank you. Sheryl Luna,PT,DPT
--- NOTE | 2020-08-20 08:30 | NUR ---
Patient resting quietly with no c/o discomfort. Respirations easy and regular. Minimal strike through noted to drsg on left foot. Vital signs stable. No overt distress. Call light in reach. will monitor. ARGENTINA MARTINEZ
[2020-08-20] MEDS ORDERED: NEURONTIN300 MG PO (09:27)
--- NOTE | 2020-08-20 11:20 | NUR ---
OT NOTE Occupational therapy order received, chart reviewed, and attempted to see patient at bedside this AM. Upon arrival, Dr. Rankin from podiatry entering room and requesting therapy to hold on patient due to needing a LLE dressing change. Per department sales manager, patient is now LLE NWB. Spoke with primary nurse Lyn and informed her of holding on therapy and LLE NWB. Thank you. Nydia Foster, OTR/Ranulfo
--- NOTE | 2020-08-20 11:45 | NUR ---
PHYSICAL THERAPY Physical therapy order received, chart reviewed, and attempted to see patient at bedside this AM. Upon arrival, Dr. Rankin from podiatry entering room and requesting therapy to hold on patient due to change LLE dressing. Per rerolling machine operator, patient is now LLE NWB. Spoke with primary nurse Lyn and informed her of holding on therapy and LLE NWB. Thank you. Davonte Luna PT,DPT
[2020-08-20 12:00] VITALS: BP 113/67
--- NOTE | 2020-08-20 12:14 | NUR ---
Senior Director Insight in to talk to patient. Patient states lives at HOME with ALONE. There are 10 steps in the home. Physician: [facility] Pharmacy: [facility] Home health services: NONE Patient's level of ADLs: INDEPENDENT Patient has working utilities: YES DME: NONE Follow-up physician's appointment after d/c: WILL BE MADE BY HOSPITALIST NURSE DIRECTOR ON DISCHARGE Does patient want to access PORTAL?: NO Discharge plan PT LIVES AT HOME ALONE AND IS INDEPENDENT IN HIS CARE. DENIES NEEDS AT HOME. ATTEMPTED TO TALK WITH PT ABOUT POSSIBLE WOUND VAC AND IV ANTIBIOITCS. PT STATES I HAD THE SAME THING ON MY OTHER FOOT AND DIDN'T HAVE THAT STUFF. ALSO TALKED WITH HIM ABOUT HOME HEALTH, HE STATES HE DOES NOT NEED THEM HE TAKES CARE OF HIMSELF. HE STATES I CAN WALK THEY JUST WON'T LET ME. WILL CONTINUE TO FOLLOW AND REVISIT PT TO DISCUSS DISCHARGE PLANS AGAIN. STATES HE WILL HAVE A RIDE HOME.. SHIMA DIAS
--- NOTE | 2020-08-20 13:00 | NUR ---
PODITARY IN TO SEE PT. DRSG CHANGED BY PODITARY.
--- NOTE | 2020-08-20 13:52 | NUR ---
PT REQUESTED AND WAS MEIDCATED WITH [facility] FOR C/O LEFT FOOT PAIN. CALL LIGHT IN REACH. WILL MONITOR
--- NOTE | 2020-08-20 14:39 | NUR ---
MEDICATION EFFECTIVE PER PT. CALL LIGHT IN REACH. WILL MONITOR
--- NOTE | 2020-08-20 14:50 | NUR ---
OT NOTE Occupational therapy order received, chart reviewed, and attempted to see patient at bedside this afternoon. Patient declining an OT evaluation at this time stating "If I use a walker, I will put weight through my foot". Discussed with patient of benefits of OT and learning how to safely be LLE NWB however he replied "No, I'm just going to stay in bed." Will check back at a later date for completion of an OT eval. Nursing made aware of patient's refusal. Thank you. Nydia Foster, OTR/L
--- NOTE | 2020-08-20 14:50 | NUR ---
PHYSICAL THERAPY Physical therapy order received and chart reviewed. Attempted to evaluate pt but pt states "I will not use a walker and I will end up putting weight through my foot." Pt states "I just want to stay in bed." Will attempt to evaluate at a later date. Davonte Capps SPT Sheryl Luna PT,DPT
[2020-08-20 16:00] VITALS: BP 101/40
--- NOTE | 2020-08-20 19:16 | NUR ---
DR JIMENEZ CALLED UNIT, ORDERS RECIEVED. NURSING BUSINESS OPERATIONS DIRECTOR NOTIFIED OF PT BEING ADDED TO SURGERY SCHEDULE FOR TOMORROW AT NOON.
--- NOTE | 2020-08-20 19:35 | NUR ---
PT AWAKE IN BED TALKING ON PHONE. DENIES ANY NEEDS. WILL MONITOR.
[2020-08-20 20:00] VITALS: BP 106/46
[2020-08-20 21:50] VITALS: BP 118/66
--- NOTE | 2020-08-20 21:52 | NUR ---
PO NORCO GIVEN FOR C/O BACK PAIN AND L LEG/FOOT PAIN RATED 6/10. WILL MONITOR EFFECTIVENESS. CALL LIGHT IN REACH.
--- NOTE | 2020-08-20 22:45 | NUR ---
PT STATES NORCO EFFECTIVE FOR FOOT PAIN, BUT BACK STILL HURTING. RN OFFERED PAIN MEDICATION, PT STATES "WON'T HELP." PT DENIES ANY OTHER NEEDS. WILL MONITOR. CALL LIGHT IN REACH.
[2020-08-21] VITALS (8 sets, daily range): BP systolic 94–128; BP diastolic 45–70
[2020-08-21 03:17] LABS: BASO # 0.1 10*3/uL (0.0-0.1); BASO % 0.6 % (0.0-1.0); EOS # 0.3 10*3/uL (0.0-0.4); HEMATOCRIT 37.8 % (42.0-52.0); LYMPH # 1.5 10*3/uL (1.3-4.4); LYMPH % 12.1 % (27.0-41.0); MEAN CELL VOLUME 85.9 fl (80.0-94.0); MEAN CORPUSCULAR HGB CONC 32.5 g/dl (33.0-37.0); MEAN PLATELET VOLUME 8.8 fl (9.6-12.3); MONO # 0.9 10*3/uL (0.1-1.0); MONO % 7.4 % (3.0-9.0); NEUT # 9.8 10*3/uL (2.3-7.9); PLATELET COUNT AUTOMATED 459 10*3/uL (130-400); RED CELL DISTRI WIDTH 14.6 % (0-14.5); WHITE BLOOD COUNT 12.7 10*3/uL (4.8-10.8)
--- NOTE | 2020-08-21 03:26 | NUR ---
MADE AWARE OF +BC GPC.
[2020-08-21 03:28] LABS: BUN 18 mg/dl (7-24); CHLORIDE 106 mmol/L (98-107); CREATININE 0.92 mg/dL (0.70-1.30); POTASSIUM 3.3 mmol/L (3.5-5.1); SODIUM 139 mmol/L (136-145)
--- NOTE | 2020-08-21 04:30 | NUR ---
TROUGH ON LABS 7.1. IV VANC HUNG PER ORDER. GLUCOSE ON LABS 182. PT REFUSING AN ADDITIONAL FINGER STICK FOR BSG IN THE MORNING. STATES HE HAS BEEN "WOKEN UP ENOUGH TONIGHT." PT FOLLOWS THIS STATEMENT BY SAYING "I AIN'T EVEN GONNA EAT, I DON'T NEED MY SUGAR CHECKED." RN MADE PT AWARE THAT HE IS SCHEDULED FOR SURGERY AT NOON TODAY (08/21), BUT HE HAS ULTRASOUNDS OF BLL SCHEDULED FIRST THING IN THE AM. PT VERY UNHAPPY WITH THIS, BUT IS NOT REFUSING AT THIS TIME.
--- NOTE | 2020-08-21 08:13 | NUR ---
PHARMACIST NOTIFIED OF VANCO TROUGH OVERNIGHT OF 7.1
--- NOTE | 2020-08-21 08:18 | NUR ---
PHYSICAL THERAPY PT brianne received and chart reviewed. Attempted to see patient this morning but patient states he does not want to be seen at this time and is going down for surgery later today. Will attempt to evaluate at a later time/date. Davonte Capps SPT Sheryl Luna PT,DPT
--- NOTE | 2020-08-21 08:48 | NUR ---
PT REFUSED PT/OT AGAIN TODAY. DR JIMENEZ FROM [facility] NOTIFIED OF PT NONCPOMPLAINCE WITH NON WT BEARING STATUS.
--- NOTE | 2020-08-21 09:00 | NUR ---
WOUND VAC FORM FAXED TO SURGERY AND CALLED TO ASKED THEM TO GIVE IT TO [facility] TO FILL OUT FOR WOUND VAC ON DISCHARGE.
[2020-08-21 10:09] LABS: ACID FAST SPEC PROCESSING Tissue Grinding (.)
--- NOTE | 2020-08-21 11:11 | NUR ---
PT OFF UNIT FOR SURGERY
--- NOTE | 2020-08-21 13:52 | NUR ---
PT RETURNS FROM SURGERY WOUND VAC INTACT AND PATENT FOR SEROUS DRAINAGE. RESP EASY AND NONLABORED ON RA. CALL LIGHT IN REACH. WILL MONITOR
--- NOTE | 2020-08-21 14:00 | NUR ---
Occupational Therapy evaluation completed on 5 with full eval to follow. Recommend OT per POC and SNF to manage wound vac and NWB LLE to enable return home alone. Moderate complexity level 07863. High fall risk d/t NWB LLE and wound vac management with new ww use. Patient insists upon return home alone. When asked about using ww to get to the bathroom with wound vac, patient said "my neighbor might have a potty chair I could use. It might be dirty though." If patient insists upon returning home he will require bedside commode,wheeled walker and home health nursing, PT,OT referrals. Thank you for this referral. Neda Sanders OTR/l
--- NOTE | 2020-08-21 14:05 | NUR ---
PHYSICAL THERAPY Physical Therapy evaluation completed on 5th floor with full evaluation to follow. Recommend physical therapy per plan of care and SNF vs home w 24 hour care and assistance upon discharge. Thank you for this referral. Davonte Capps SPT Sheryl Luna PT,DPT
--- NOTE | 2020-08-21 14:10 | NUR ---
PT AGREEABLE AND DID WORK WITH PT/OT.
--- NOTE | 2020-08-21 14:18 | NUR ---
PT REQUESTED AND WAS MEDICATED WITH [facility] FOR C/O LEFT FOOT PAIN. CALL [facility] IN [place]. WILL MONITOR
--- NOTE | 2020-08-21 14:33 | NUR ---
DR DARLING CALLED VIA ANSWERING SERVICE FOR CONSULT. DR DARLING TO CHECK WITH RESTORATIVE CARE TECHNICIAN TO SEE WHAT DAY WOULD BE OK FOR ANGIOGRAM AND CALL BACK. DR LOUIS NOTIFIED.
--- NOTE | 2020-08-21 14:49 | NUR ---
DR DARLING CALLS UNIT. ORDERS RECEIVED FOR PT TO BE TRANSFERRED TO [place] TOMORROW FOR ANGIOGRAM AT 0930. DR LOUIS CALLED AND NOTIFIED.
--- NOTE | 2020-08-21 14:54 | NUR ---
SPOKE WITH [facility] NUR[facility] SUPERVISIOR RE: TRANSFER. PT TO BE AT [facility] AT 0930. THIS NURSE STATES UNDERSTANDING.
--- NOTE | 2020-08-21 15:01 | NUR ---
MEDICATION EFFECTIVE PER PT. CALL LIGHT IN REACH. WILL MONITOR.
--- NOTE | 2020-08-21 15:15 | NUR ---
SPOKE WITH CHRISTIANO AT [facility], REPORT GIVEN.
--- NOTE | 2020-08-21 15:20 | NUR ---
DISCUSSED WITH PATIENT TRANSFER TO [place] IN AM. HE IS AGREEABLE AND STATES UNDERSTANDING.
--- NOTE | 2020-08-21 19:30 | NUR ---
PATIENT RESTING IN BED. GRUFF. LOTS OF COMPLAINTS. DISCUSSED WITH PATIENT NPO STATUS AFTER MIDNIGHT. PATIENT STATES UNDERSTANDING. ASSESSMENT COMPLETE. RESPS EASY AND REGULAR. WOUND VAC INTACT. CALL [facility] IN REACH.
--- NOTE | 2020-08-21 21:25 | NUR ---
WENT OVER TRANSFER PACKET WITH PATIENT FOR [place]. PATIENTS QUESTIONS WERE ANSWERED. CONSENT OBTAINED.
--- NOTE | 2020-08-21 23:42 | NUR ---
MEDICATED WITH PRN [facility]CO FOR CO LEFT FOOT PAIN. WILL ASSESS EFFECTIVENESS.
[2020-08-22] VITALS: BP 114/52
--- NOTE | 2020-08-22 00:42 | NUR ---
[facility] EFFECTIVE PER PATIENT.
--- NOTE | 2020-08-22 02:33 | NUR ---
24 HR chart check completed.
--- NOTE | 2020-08-22 05:52 | NUR ---
CONTACTED [facility] AT THIS TIME TO LET THEM KNOW PATIENT WILL BE GOING TO [place] TODAY FOR AN ANGIOGRAM. NOTIFIED THEM THAT THE WOUND VAC WOUND HAVE TO BE TAKEN OFF BEFORE PATIENT LEAVES AND THAT [facility] IS GOING TO BE PICKING PATIENT UP AT 0830. ASKED IF SHE WANTED ME TO REMOVE THE WOUND VAC AND WHAT DRESSING THEY WANTED OR IF THEY WERE GOING TO DO IT. PER [facility] RESIDENT SHE WAS GOING TO GET AHOLD OF SOMEONE AND CALL ME BACK AND LET ME KNOW. WILL AWAIT CALL BACK.
--- NOTE | 2020-08-22 05:58 | NUR ---
PATIENT REFUSING BSG CHECK AT THIS TIME. PATIENT STATES "I HAVEN'T BEEN ABLE TO EAT OR DRINK ANYTHING EVER SINCE LAST NIGHT. IT AIN'T GOING TO CHANGE FROM THE LAST TIME."
--- NOTE | 2020-08-22 06:26 | NUR ---
[facility] RESIDENT CALLED BACK AND STATES TO GO AHEAD AND REMOVE THE WOUND VAC FOR THEM. PER P[facility]RY RESIDENT SALINE MOISTENED GAUZE TO THE INCISION, GAUZE AND KERLIX.
--- NOTE | 2020-08-22 06:35 | NUR ---
WOUND VAC TAKEN OFF AND WET TO DRY DRESSING APPLIED PER ORDER. DISCHARGE PHOTOS OF WOUNDS TAKEN. AFTER TAKING PHOTO OF LEFT FOOT WOUND REALIZED I FORGOT TO ADD MY PNEUMONIC AND WET TO DRY DRESSING WAS ALREADY APPLIED AT THIS TIME.
--- NOTE | 2020-08-22 07:30 | NUR ---
TOOK OVER CARE OF PT. PT RESTING IN BED. RESPIRATIONS EASY AND UNLABORED. DRESSING C/D/I. NO S/S OF DISTRESS AT THIS TIME. SAFETY MEASURES IN PLACE. CALL LIGHT IN REACH.
[2020-08-22 08:00] VITALS: BP 121/60
--- NOTE | 2020-08-22 08:43 | NUR ---
[place] [facility].
--- NOTE | 2020-08-22 08:43 | NUR ---
Discharge instructions reviewed with patient/family. Patient receptive and verbalizes understanding. Follow-up care arranged. Written instructions given to patient/family. DEVIN DUNAWAY
[2020-08-23 13:06] LABS: ACID FAST SPEC PROCESSING Tissue Grinding (.)
[2020-08-23 13:06] LABS: ACID FAST SPEC PROCESSING Tissue Grinding (.)
== END 2020-08-22 08:49 | disposition short-term general hospital (02) | DRG 264 ==
LOC: ED 09:27 → 5E 11:21 → EDHOLD 11:21 → 5E 11:46
PROVIDERS: Emergency Medicine; Podiatrist; Podiatrist Foot & Ankle Surgery; Student in an Organized Health Care Education/Training Program; ADMIT Family Medicine; ATTEND Family Medicine
PROC: 0QBP0ZX Excision of Left Metatarsal, Open Approach, Diagnostic (ICD-10-PCS; 2020-08-19)
PROC: 0JBR0ZZ Excision of Left Foot Subcutaneous Tissue and Fascia, Open Approach (ICD-10-PCS; principal; 2020-08-21)
PROC: 0QBP0ZX Excision of Left Metatarsal, Open Approach, Diagnostic (ICD-10-PCS; principal; 2020-08-21)
PROC: 2W1TX6Z Compression of Left Foot using Pressure Dressing (ICD-10-PCS; 2020-08-21)
DX: E11.52 Type 2 diabetes mellitus with diabetic peripheral angiopathy with gangrene (principal); A48.0 Gas gangrene; E43 Unspecified severe protein-calorie malnutrition; N17.0 Acute kidney failure with tubular necrosis; L02.612 Cutaneous abscess of left foot; L03.116 Cellulitis of left lower limb; M86.8X7 Other osteomyelitis, ankle and foot; Z68.41 Body mass index [BMI] 40.0-44.9, adult; E11.621 Type 2 diabetes mellitus with foot ulcer; L08.9 Local infection of the skin and subcutaneous tissue, unspecified; E87.6 Hypokalemia; E11.65 Type 2 diabetes mellitus with hyperglycemia; I10 Essential (primary) hypertension; E11.628 Type 2 diabetes mellitus with other skin complications; E83.41 Hypermagnesemia; D64.9 Anemia, unspecified; D72.829 Elevated white blood cell count, unspecified; E11.42 Type 2 diabetes mellitus with diabetic polyneuropathy; E11.69 Type 2 diabetes mellitus with other specified complication; L97.529 Non-pressure chronic ulcer of other part of left foot with unspecified severity; D47.3 Essential (hemorrhagic) thrombocythemia; Z88.0 Allergy status to penicillin; Z82.49 Family history of ischemic heart disease and other diseases of the circulatory system; Z79.4 Long term (current) use of insulin

== ENCOUNTER → 2020-11-01 | Outpatient (CLI) | payer MEDICARE ==
[~2020-11-01] MED LIST changes: +APRESOLINE25 MG PO; +CEFEPIME2 GM/100 M IV; +COREG6.25 MG PO; +COZAAR100 MG PO; +CYMBALTA30 MG PO; +HYDROCHLOROTH12.5 M2 PO; +INVOKANA300 M1 PO; +JANUVIA100 MG PO; +NEURONTIN300 MG PO
== END | disposition home or self-care (01) ==
LOC: RESCLI 00:34
PROVIDERS: ATTEND Internal Medicine
DX: E11.618 Type 2 diabetes mellitus with other diabetic arthropathy (principal); I10 Essential (primary) hypertension; G62.9 Polyneuropathy, unspecified; Z79.899 Other long term (current) drug therapy; M86.9 Osteomyelitis, unspecified; Z87.891 Personal history of nicotine dependence; Z88.0 Allergy status to penicillin

== ENCOUNTER 2021-01-06 09:56 | Inpatient (IN) | payer MEDICARE ==
[~2021-01-06] VITALS: Ht 172.7 cm
[2021-01-06] VITALS (7 sets, daily range): BP systolic 115–179; BP diastolic 52–73
[2021-01-06 10:47] LABS: BASO # 0.1 10*3/uL (0.0-0.1); BASO % 1.1 % (0.0-1.0); EOS # 0.2 10*3/uL (0.0-0.4); EOS % 1.7 % (1.0-4.0); HEMATOCRIT 40.2 % (42.0-52.0); LYMPH # 1.2 10*3/uL (1.3-4.4); LYMPH % 13.3 % (27.0-41.0); MEAN CELL VOLUME 77.5 fl (80.0-94.0); MEAN CORPUSCULAR HGB 24.1 pg (27.0-31.0); MEAN CORPUSCULAR HGB CONC 31.1 g/dl (33.0-37.0); MEAN PLATELET VOLUME 8.4 fl (9.6-12.3); MONO # 0.4 10*3/uL (0.1-1.0); MONO % 3.9 % (3.0-9.0); NEUT # 7.3 10*3/uL (2.3-7.9); NEUT % 79.3 % (47.0-73.0); PLATELET COUNT AUTOMATED 479 10*3/uL (130-400); RED BLOOD COUNT 5.19 10*6/uL (4.50-5.90); RED CELL DISTRI WIDTH 14.9 % (0-14.5); WHITE BLOOD COUNT 9.2 10*3/uL (4.8-10.8)
[2021-01-06 10:57] LABS: ACT PARTIAL THROMBO TIME 27.4 SECONDS (20.0-32.1)
[2021-01-06 11:11] LABS: ALBUMIN 2.9 gm/dl (3.1-4.5); ALKALINE PHOSPHATASE 125 U/L (45-117); BUN 19 mg/dl (7-24); CHLORIDE 106 mmol/L (98-107); CREATININE 1.19 mg/dL (0.70-1.30); POTASSIUM 3.9 mmol/L (3.5-5.1); SGOT/AST 11 IU/L (3-35); SGPT/ALT 15 U/L (12-78); SODIUM 141 mmol/L (136-145); TOTAL PROTEIN 7.2 gm/dL (6.4-8.2)
[2021-01-06] MEDS ORDERED: NEURONTIN300 MG PO (13:15)
[2021-01-07] VITALS: BP 132/90
[2021-01-07 06:40] LABS: BASO # 0.1 10*3/uL (0.0-0.1); BASO % 0.8 % (0.0-1.0); EOS # 0.4 10*3/uL (0.0-0.4); EOS % 4.5 % (1.0-4.0); HEMATOCRIT 37.2 % (42.0-52.0); LYMPH # 1.8 10*3/uL (1.3-4.4); LYMPH % 22.1 % (27.0-41.0); MEAN CELL VOLUME 77.5 fl (80.0-94.0); MEAN CORPUSCULAR HGB 24.2 pg (27.0-31.0); MEAN CORPUSCULAR HGB CONC 31.2 g/dl (33.0-37.0); MEAN PLATELET VOLUME 8.6 fl (9.6-12.3); MONO # 0.6 10*3/uL (0.1-1.0); MONO % 6.7 % (3.0-9.0); NEUT # 5.4 10*3/uL (2.3-7.9); NEUT % 64.8 % (47.0-73.0); PLATELET COUNT AUTOMATED 419 10*3/uL (130-400); RED CELL DISTRI WIDTH 15.2 % (0-14.5); WHITE BLOOD COUNT 8.3 10*3/uL (4.8-10.8)
[2021-01-07 06:54] LABS: BUN 16 mg/dl (7-24); CHLORIDE 108 mmol/L (98-107); CREATININE 0.97 mg/dL (0.70-1.30); POTASSIUM 3.9 mmol/L (3.5-5.1); SODIUM 141 mmol/L (136-145)
[2021-01-07 08:00] VITALS: BP 132/56
[2021-01-07 12:00] VITALS: BP 130/62; BP 134/64
[2021-01-07 16:00] VITALS: BP 121/49
[2021-01-07 20:07] VITALS: BP 126/59
[2021-01-08] VITALS (10 sets, daily range): BP systolic 129–153; BP diastolic 52–85
[2021-01-08 06:22] LABS: BASO # 0.1 10*3/uL (0.0-0.1); BASO % 0.9 % (0.0-1.0); EOS # 0.3 10*3/uL (0.0-0.4); EOS % 3.7 % (1.0-4.0); HEMATOCRIT 38.2 % (42.0-52.0); LYMPH # 2.4 10*3/uL (1.3-4.4); LYMPH % 26.7 % (27.0-41.0); MEAN CELL VOLUME 77.5 fl (80.0-94.0); MEAN CORPUSCULAR HGB 23.9 pg (27.0-31.0); MEAN CORPUSCULAR HGB CONC 30.9 g/dl (33.0-37.0); MEAN PLATELET VOLUME 8.7 fl (9.6-12.3); MONO # 0.6 10*3/uL (0.1-1.0); MONO % 6.6 % (3.0-9.0); NEUT # 5.4 10*3/uL (2.3-7.9); NEUT % 61.1 % (47.0-73.0); PLATELET COUNT AUTOMATED 445 10*3/uL (130-400); RED BLOOD COUNT 4.93 10*6/uL (4.50-5.90); RED CELL DISTRI WIDTH 15.5 % (0-14.5); WHITE BLOOD COUNT 8.8 10*3/uL (4.8-10.8)
[2021-01-08 06:56] LABS: BUN 23 mg/dl (7-24); CHLORIDE 106 mmol/L (98-107); CREATININE 0.96 mg/dL (0.70-1.30); POTASSIUM 3.9 mmol/L (3.5-5.1); SODIUM 139 mmol/L (136-145)
[2021-01-09 02:00] VITALS: BP 112/66
[2021-01-09 08:00] VITALS: BP 149/67
[2021-01-09 10:08] LABS: ACID FAST SPEC PROCESSING Tissue Grinding (.)
[2021-01-09 10:08] LABS: ACID FAST SPEC PROCESSING Tissue Grinding (.)
[2021-01-09 10:08] LABS: ACID FAST SPEC PROCESSING Tissue Grinding (.)
[2021-01-09 12:00] VITALS: BP 155/62
[2021-01-09 16:00] VITALS: BP 150/66; BP 155/62
[2021-01-09 20:00] VITALS: BP 128/60
[2021-01-10 01:20] VITALS: BP 106/66
[2021-01-10 07:49] VITALS: BP 118/58
[2021-01-10 08:36] LABS: BASO # 0.1 10*3/uL (0.0-0.1); BASO % 0.8 % (0.0-1.0); EOS # 0.3 10*3/uL (0.0-0.4); EOS % 2.2 % (1.0-4.0); HEMATOCRIT 36.7 % (42.0-52.0); LYMPH # 1.8 10*3/uL (1.3-4.4); LYMPH % 14.2 % (27.0-41.0); MEAN CELL VOLUME 78.9 fl (80.0-94.0); MEAN CORPUSCULAR HGB 23.9 pg (27.0-31.0); MEAN CORPUSCULAR HGB CONC 30.2 g/dl (33.0-37.0); MEAN PLATELET VOLUME 8.8 fl (9.6-12.3); MONO # 1.2 10*3/uL (0.1-1.0); MONO % 8.9 % (3.0-9.0); NEUT # 9.5 10*3/uL (2.3-7.9); NEUT % 73.1 % (47.0-73.0); PLATELET COUNT AUTOMATED 409 10*3/uL (130-400); RED BLOOD COUNT 4.65 10*6/uL (4.50-5.90); RED CELL DISTRI WIDTH 15.6 % (0-14.5)
[2021-01-10 12:00] VITALS: BP 120/55
[2021-01-10 16:00] VITALS: BP 125/60
[2021-01-10 20:00] VITALS: BP 140/68
[2021-01-11 07:25] LABS: BASO # 0.1 10*3/uL (0.0-0.1); BASO % 0.7 % (0.0-1.0); EOS # 0.2 10*3/uL (0.0-0.4); EOS % 1.8 % (1.0-4.0); HEMATOCRIT 34.6 % (42.0-52.0); LYMPH # 1.4 10*3/uL (1.3-4.4); LYMPH % 11.7 % (27.0-41.0); MEAN CELL VOLUME 78.1 fl (80.0-94.0); MEAN CORPUSCULAR HGB 23.9 pg (27.0-31.0); MEAN CORPUSCULAR HGB CONC 30.6 g/dl (33.0-37.0); MEAN PLATELET VOLUME 8.8 fl (9.6-12.3); MONO # 0.9 10*3/uL (0.1-1.0); MONO % 7.1 % (3.0-9.0); NEUT # 9.5 10*3/uL (2.3-7.9); PLATELET COUNT AUTOMATED 399 10*3/uL (130-400); RED BLOOD COUNT 4.43 10*6/uL (4.50-5.90); RED CELL DISTRI WIDTH 15.5 % (0-14.5); WHITE BLOOD COUNT 12.2 10*3/uL (4.8-10.8)
[2021-01-11 07:46] LABS: ALBUMIN 2.4 gm/dl (3.1-4.5); BUN 21 mg/dl (7-24); CHLORIDE 105 mmol/L (98-107); CREATININE 1.14 mg/dL (0.70-1.30); POTASSIUM 3.8 mmol/L (3.5-5.1); SGOT/AST 10 IU/L (3-35); SGPT/ALT 14 U/L (12-78); SODIUM 138 mmol/L (136-145)
[2021-01-11 07:48] LABS: ALKALINE PHOSPHATASE 108 U/L (45-117); TOTAL PROTEIN 6.6 gm/dL (6.4-8.2)
[2021-01-11 08:00] VITALS: BP 152/83
[2021-01-11 12:00] VITALS: BP 155/76
[2021-01-11 16:00] VITALS: BP 148/64
[2021-01-11 20:00] VITALS: BP 111/58
[2021-01-12 06:31] LABS: BASO # 0.1 10*3/uL (0.0-0.1); BASO % 0.8 % (0.0-1.0); EOS # 0.2 10*3/uL (0.0-0.4); EOS % 1.5 % (1.0-4.0); HEMATOCRIT 33.1 % (42.0-52.0); LYMPH # 1.5 10*3/uL (1.3-4.4); LYMPH % 12.5 % (27.0-41.0); MEAN CELL VOLUME 77.5 fl (80.0-94.0); MEAN CORPUSCULAR HGB 23.9 pg (27.0-31.0); MEAN CORPUSCULAR HGB CONC 30.8 g/dl (33.0-37.0); MEAN PLATELET VOLUME 8.8 fl (9.6-12.3); MONO % 8.1 % (3.0-9.0); NEUT # 8.9 10*3/uL (2.3-7.9); NEUT % 76.4 % (47.0-73.0); PLATELET COUNT AUTOMATED 395 10*3/uL (130-400); RED BLOOD COUNT 4.27 10*6/uL (4.50-5.90); RED CELL DISTRI WIDTH 15.6 % (0-14.5); WHITE BLOOD COUNT 11.7 10*3/uL (4.8-10.8)
[2021-01-12 06:41] LABS: BUN 23 mg/dl (7-24); CHLORIDE 103 mmol/L (98-107); POTASSIUM 3.5 mmol/L (3.5-5.1); SODIUM 136 mmol/L (136-145)
[2021-01-12 08:00] VITALS: BP 109/84
[2021-01-12 12:00] VITALS: BP 111/76
[2021-01-12 16:00] VITALS: BP 116/53
[2021-01-12 20:00] VITALS: BP 132/64
[2021-01-12 22:00] VITALS: BP 132/64
[2021-01-13] VITALS: BP 124/60
[2021-01-13 06:46] LABS: BUN 22 mg/dl (7-24); CHLORIDE 103 mmol/L (98-107); POTASSIUM 3.6 mmol/L (3.5-5.1); SODIUM 138 mmol/L (136-145)
[2021-01-13 08:00] VITALS: BP 134/63
[2021-01-13 09:26] LABS: BASO # 0.1 10*3/uL (0.0-0.1); BASO % 0.8 % (0.0-1.0); EOS # 0.2 10*3/uL (0.0-0.4); EOS % 1.7 % (1.0-4.0); HEMATOCRIT 33.1 % (42.0-52.0); LYMPH # 1.6 10*3/uL (1.3-4.4); LYMPH % 14.9 % (27.0-41.0); MEAN CELL VOLUME 78.1 fl (80.0-94.0); MEAN CORPUSCULAR HGB 23.8 pg (27.0-31.0); MEAN CORPUSCULAR HGB CONC 30.5 g/dl (33.0-37.0); MEAN PLATELET VOLUME 9.1 fl (9.6-12.3); MONO # 0.9 10*3/uL (0.1-1.0); MONO % 8.5 % (3.0-9.0); NEUT # 8.1 10*3/uL (2.3-7.9); NEUT % 73.6 % (47.0-73.0); PLATELET COUNT AUTOMATED 468 10*3/uL (130-400); RED BLOOD COUNT 4.24 10*6/uL (4.50-5.90); RED CELL DISTRI WIDTH 15.5 % (0-14.5)
[2021-01-13] MEDS ORDERED: VANCOMYCIN1.5 GM/15 IV (15:21)
[2021-01-13 16:00] VITALS: BP 128/68
[2021-01-14] VITALS: BP 141/67
[2021-01-14 06:23] LABS: BUN 23 mg/dl (7-24); CHLORIDE 104 mmol/L (98-107); CREATININE 0.89 mg/dL (0.70-1.30); POTASSIUM 3.7 mmol/L (3.5-5.1); SODIUM 139 mmol/L (136-145)
[2021-01-14 06:36] LABS: BASO # 0.1 10*3/uL (0.0-0.1); BASO % 1.1 % (0.0-1.0); EOS # 0.2 10*3/uL (0.0-0.4); EOS % 2.1 % (1.0-4.0); HEMATOCRIT 31.9 % (42.0-52.0); LYMPH # 1.5 10*3/uL (1.3-4.4); LYMPH % 14.1 % (27.0-41.0); MEAN CELL VOLUME 76.9 fl (80.0-94.0); MEAN CORPUSCULAR HGB 23.9 pg (27.0-31.0); MEAN PLATELET VOLUME 8.8 fl (9.6-12.3); MONO # 0.7 10*3/uL (0.1-1.0); MONO % 6.9 % (3.0-9.0); NEUT # 8.1 10*3/uL (2.3-7.9); NEUT % 75.2 % (47.0-73.0); PLATELET COUNT AUTOMATED 475 10*3/uL (130-400); RED BLOOD COUNT 4.15 10*6/uL (4.50-5.90); RED CELL DISTRI WIDTH 15.4 % (0-14.5); WHITE BLOOD COUNT 10.8 10*3/uL (4.8-10.8)
[2021-01-14 08:00] VITALS: BP 117/64
[2021-01-14 16:00] VITALS: BP 129/80
[2021-01-14 20:00] VITALS: BP 134/73
[2021-01-15 08:00] VITALS: BP 129/67
[2021-01-15 08:16] LABS: BASO # 0.1 10*3/uL (0.0-0.1); BASO % 0.9 % (0.0-1.0); EOS # 0.3 10*3/uL (0.0-0.4); EOS % 2.3 % (1.0-4.0); HEMATOCRIT 31.8 % (42.0-52.0); LYMPH # 1.4 10*3/uL (1.3-4.4); LYMPH % 11.9 % (27.0-41.0); MEAN CELL VOLUME 76.8 fl (80.0-94.0); MEAN CORPUSCULAR HGB 23.7 pg (27.0-31.0); MEAN CORPUSCULAR HGB CONC 30.8 g/dl (33.0-37.0); MEAN PLATELET VOLUME 8.8 fl (9.6-12.3); MONO # 0.7 10*3/uL (0.1-1.0); MONO % 6.4 % (3.0-9.0); NEUT # 8.8 10*3/uL (2.3-7.9); NEUT % 77.7 % (47.0-73.0); PLATELET COUNT AUTOMATED 493 10*3/uL (130-400); RED BLOOD COUNT 4.14 10*6/uL (4.50-5.90); RED CELL DISTRI WIDTH 15.3 % (0-14.5); WHITE BLOOD COUNT 11.3 10*3/uL (4.8-10.8)
[2021-01-15 12:00] VITALS: BP 121/80
[2021-01-15 16:00] VITALS: BP 131/71
[2021-01-15 20:00] VITALS: BP 107/51
[2021-01-16] VITALS: BP 119/69
[2021-01-16 08:00] VITALS: BP 114/46
[2021-01-16 08:14] LABS: BASO # 0.1 10*3/uL (0.0-0.1); BASO % 0.9 % (0.0-1.0); EOS # 0.3 10*3/uL (0.0-0.4); EOS % 2.8 % (1.0-4.0); HEMATOCRIT 32.4 % (42.0-52.0); LYMPH # 1.7 10*3/uL (1.3-4.4); LYMPH % 16.1 % (27.0-41.0); MEAN CELL VOLUME 76.8 fl (80.0-94.0); MEAN CORPUSCULAR HGB 23.7 pg (27.0-31.0); MEAN CORPUSCULAR HGB CONC 30.9 g/dl (33.0-37.0); MEAN PLATELET VOLUME 8.9 fl (9.6-12.3); MONO # 0.6 10*3/uL (0.1-1.0); MONO % 6.1 % (3.0-9.0); NEUT # 7.7 10*3/uL (2.3-7.9); NEUT % 73.5 % (47.0-73.0); PLATELET COUNT AUTOMATED 548 10*3/uL (130-400); RED BLOOD COUNT 4.22 10*6/uL (4.50-5.90); RED CELL DISTRI WIDTH 15.4 % (0-14.5); WHITE BLOOD COUNT 10.5 10*3/uL (4.8-10.8)
[2021-01-16] MEDS ORDERED: NEURONTIN300 MG PO (09:20)
[2021-01-16] MEDS ORDERED: PERCOCET 7.5 MG-325 PO (09:20)
[2021-01-16] MEDS ORDERED: Lovenox40 MG/0.4 PO (11:43)
[2021-02-21 13:06] LABS: ACID FAST CULTURE Negative (.)
[2021-02-21 13:06] LABS: ACID FAST CULTURE Negative (.)
[2021-02-21 13:06] LABS: ACID FAST CULTURE Negative (.)
[2021-03-10] MEDS ORDERED: PROTONIX40 MG PO (09:57)
[2021-03-10] MEDS ORDERED: CARAFATE1 G1 PO (09:57)
[2021-03-19] MEDS ORDERED: ULTRAM50 MG PO (13:10)
[2021-03-19] MEDS ORDERED: XARELTO10 MG PO (13:12)
== END 2021-01-16 11:18 | DRG 629 ==
LOC: ED 09:56 → 5E 11:08 → EDHOLD 11:08 → 5E 16:27
PROVIDERS: Family Medicine; Internal Medicine; Podiatrist; Podiatrist Foot & Ankle Surgery; Registered Nurse; ADMIT Student in an Organized Health Care Education/Training Program; ATTEND Student in an Organized Health Care Education/Training Program
PROC: 0LXW0ZZ Transfer Left Foot Tendon, Open Approach (ICD-10-PCS; principal; 2021-01-08)
PROC: 0QBM0ZZ Excision of Left Tarsal, Open Approach (ICD-10-PCS; 2021-01-08)
PROC: 0QBM0ZX Excision of Left Tarsal, Open Approach, Diagnostic (ICD-10-PCS; 2021-01-08)
PROC: 0SSG35Z Reposition Left Ankle Joint with External Fixation Device, Percutaneous Approach (ICD-10-PCS; 2021-01-08)
PROC: 02HV33Z Insertion of Infusion Device into Superior Vena Cava, Percutaneous Approach (ICD-10-PCS; 2021-01-10)
PROC: B548ZZA Ultrasonography of Superior Vena Cava, Guidance (ICD-10-PCS; 2021-01-10)
DX: E11.69 Type 2 diabetes mellitus with other specified complication (principal); L97.422 Non-pressure chronic ulcer of left heel and midfoot with fat layer exposed; E44.0 Moderate protein-calorie malnutrition; M86.8X7 Other osteomyelitis, ankle and foot; E11.621 Type 2 diabetes mellitus with foot ulcer; E11.628 Type 2 diabetes mellitus with other skin complications; E83.41 Hypermagnesemia; E11.65 Type 2 diabetes mellitus with hyperglycemia; L08.9 Local infection of the skin and subcutaneous tissue, unspecified; D50.9 Iron deficiency anemia, unspecified; D47.3 Essential (hemorrhagic) thrombocythemia; R74.8 Abnormal levels of other serum enzymes; R79.82 Elevated C-reactive protein (CRP); I10 Essential (primary) hypertension; S93.02XA Subluxation of left ankle joint, initial encounter; S93.05XA Dislocation of left ankle joint, initial encounter; Y93.89 Activity, other specified; X58.XXXA Exposure to other specified factors, initial encounter; Y92.89 Other specified places as the place of occurrence of the external cause; Y99.8 Other external cause status; Z88.0 Allergy status to penicillin; Z87.891 Personal history of nicotine dependence; Z82.49 Family history of ischemic heart disease and other diseases of the circulatory system; Z89.412 Acquired absence of left great toe; Z79.899 Other long term (current) drug therapy; Z20.822 Contact with and (suspected) exposure to COVID-19

== ENCOUNTER → 2021-02-10 | Outpatient (CLI) | payer MEDICARE ==
[~2021-02-10] MED LIST changes: +CARAFATE1 G1 PO; +Lovenox40 MG/0.4 PO; +PERCOCET 7.5 MG-325 PO; +PROTONIX40 MG PO; +ULTRAM50 MG PO; +VANCOMYCIN1.5 GM/15 IV; +XARELTO10 MG PO
[2021-02-10 11:19] LABS: BASO # 0.1 10*3/uL (0.0-0.1); BASO % 0.8 % (0.0-1.0); EOS # 0.2 10*3/uL (0.0-0.4); HEMATOCRIT 38.2 % (42.0-52.0); LYMPH # 1.6 10*3/uL (1.3-4.4); LYMPH % 16.3 % (27.0-41.0); MEAN CELL VOLUME 76.7 fl (80.0-94.0); MEAN CORPUSCULAR HGB 23.3 pg (27.0-31.0); MEAN CORPUSCULAR HGB CONC 30.4 g/dl (33.0-37.0); MEAN PLATELET VOLUME 8.7 fl (9.6-12.3); MONO # 0.5 10*3/uL (0.1-1.0); MONO % 5.7 % (3.0-9.0); NEUT # 7.1 10*3/uL (2.3-7.9); NEUT % 74.7 % (47.0-73.0); PLATELET COUNT AUTOMATED 438 10*3/uL (130-400); RED BLOOD COUNT 4.98 10*6/uL (4.50-5.90); RED CELL DISTRI WIDTH 18.4 % (0-14.5); WHITE BLOOD COUNT 9.5 10*3/uL (4.8-10.8)
[2021-02-10 11:46] LABS: BUN 20 mg/dl (7-24); CHLORIDE 107 mmol/L (98-107); CREATININE 1.14 mg/dL (0.70-1.30); POTASSIUM 3.9 mmol/L (3.5-5.1); SODIUM 142 mmol/L (136-145)
== END | disposition home or self-care (01) ==
LOC: LAB 10:50
PROVIDERS: ATTEND Internal Medicine
DX: E11.618 Type 2 diabetes mellitus with other diabetic arthropathy (principal); Z79.899 Other long term (current) drug therapy

== ENCOUNTER → 2021-02-12 | Outpatient (CLI) | payer MEDICARE | END | disposition home or self-care (01) | LOC: RESCLI 01:56 | PROVIDERS: ATTEND Internal Medicine | DX: I10 Essential (primary) hypertension (principal); E11.618 Type 2 diabetes mellitus with other diabetic arthropathy; R63.4 Abnormal weight loss; Z79.899 Other long term (current) drug therapy; Z87.891 Personal history of nicotine dependence; Z88.0 Allergy status to penicillin ==

== ENCOUNTER → 2021-03-07 | Outpatient (CLI) | payer MEDICARE | END | disposition home or self-care (01) | LOC: COVID19 11:24 | PROVIDERS: ATTEND Surgery | DX: Z01.818 Encounter for other preprocedural examination (principal); Z20.822 Contact with and (suspected) exposure to COVID-19 ==

== ENCOUNTER → 2021-03-10 | Day surgery (SDC) | payer MEDICARE ==
[~2021-03-10] VITALS: Ht 172.7 cm; Wt 66.2 kg
[2021-03-10 09:12] VITALS: BP 101/62
[2021-03-10 09:52] VITALS: BP 98/51
[2021-03-10 10:07] VITALS: BP 144/73
[2021-03-10 10:22] VITALS: BP 156/89
== END | disposition home or self-care (01) ==
LOC: SDC 03-06 09:30
PROVIDERS: ATTEND Surgery
DX: R63.4 Abnormal weight loss (principal); R13.10 Dysphagia, unspecified; K29.50 Unspecified chronic gastritis without bleeding; I10 Essential (primary) hypertension; E11.40 Type 2 diabetes mellitus with diabetic neuropathy, unspecified; M86.9 Osteomyelitis, unspecified; Z88.0 Allergy status to penicillin; Z79.899 Other long term (current) drug therapy

== ENCOUNTER → 2021-03-11 | Outpatient (CLI) | payer MEDICARE | END | disposition home or self-care (01) | LOC: COVID19 12:06 | PROVIDERS: ATTEND Surgery | DX: Z01.812 Encounter for preprocedural laboratory examination (principal); Z20.822 Contact with and (suspected) exposure to COVID-19 ==

== ENCOUNTER → 2021-03-14 | Outpatient (CLI) | payer MEDICARE | END | disposition home or self-care (01) | LOC: COVID19 10:46 | PROVIDERS: ATTEND Surgery | DX: Z01.818 Encounter for other preprocedural examination (principal); Z20.822 Contact with and (suspected) exposure to COVID-19 ==

== ENCOUNTER → 2021-03-18 | Outpatient (CLI) | payer MEDICARE | END | disposition home or self-care (01) | LOC: RESCLI 00:26 | PROVIDERS: ATTEND Internal Medicine | DX: I10 Essential (primary) hypertension (principal); E11.40 Type 2 diabetes mellitus with diabetic neuropathy, unspecified ==

== ENCOUNTER → 2021-03-19 | Day surgery (SDC) | payer MEDICARE ==
[~2021-03-19] VITALS: Ht 172.7 cm; Wt 65.3 kg
[2021-03-19 08:20] VITALS: BP 150/67
[2021-03-19 12:55] VITALS: BP 153/80
[2021-03-19 13:10] VITALS: BP 158/84
[2021-03-19 13:25] VITALS: BP 166/80
[2021-03-19 13:40] VITALS: BP 156/69
[2021-03-19 13:50] VITALS: BP 164/88
[2021-03-20 14:08] LABS: ACID FAST SPEC PROCESSING Tissue Grinding (.)
[2021-03-20 14:08] LABS: ACID FAST SPEC PROCESSING Tissue Grinding (.)
== END ==
LOC: SDC 03-11 08:00
PROVIDERS: ATTEND Podiatrist
DX: M86.8X7 Other osteomyelitis, ankle and foot (principal); E11.40 Type 2 diabetes mellitus with diabetic neuropathy, unspecified; I10 Essential (primary) hypertension; Z87.891 Personal history of nicotine dependence; Z88.0 Allergy status to penicillin; Z79.899 Other long term (current) drug therapy

== ENCOUNTER → 2021-05-07 | Outpatient (CLI) | payer MEDICARE ==
[2021-05-07 10:41] LABS: BASO # 0.1 10*3/uL (0.0-0.1); BASO % 0.9 % (0.0-1.0); EOS # 0.1 10*3/uL (0.0-0.4); EOS % 0.9 % (1.0-4.0); HEMATOCRIT 33.6 % (42.0-52.0); LYMPH # 1.2 10*3/uL (1.3-4.4); LYMPH % 8.9 % (27.0-41.0); MEAN CELL VOLUME 70.6 fl (80.0-94.0); MEAN CORPUSCULAR HGB 21.2 pg (27.0-31.0); MEAN CORPUSCULAR HGB CONC 30.1 g/dl (33.0-37.0); MEAN PLATELET VOLUME 8.4 fl (9.6-12.3); MONO # 0.7 10*3/uL (0.1-1.0); MONO % 5.4 % (3.0-9.0); NEUT # 11.4 10*3/uL (2.3-7.9); NEUT % 82.8 % (47.0-73.0); PLATELET COUNT AUTOMATED 726 10*3/uL (130-400); RED BLOOD COUNT 4.76 10*6/uL (4.50-5.90); RED CELL DISTRI WIDTH 19.3 % (0-14.5); WHITE BLOOD COUNT 13.8 10*3/uL (4.8-10.8)
== END | disposition home or self-care (01) ==
LOC: LAB 10:29
PROVIDERS: ATTEND Podiatrist
DX: M86.9 Osteomyelitis, unspecified (principal); B99.9 Unspecified infectious disease

== ENCOUNTER → 2021-05-08 | Outpatient (CLI) | payer MEDICARE | END | disposition home or self-care (01) | LOC: RESCLI | PROVIDERS: ATTEND Internal Medicine | DX: K29.71 Gastritis, unspecified, with bleeding (principal); E11.618 Type 2 diabetes mellitus with other diabetic arthropathy; M86.60 Other chronic osteomyelitis, unspecified site; I10 Essential (primary) hypertension; Z79.899 Other long term (current) drug therapy; Z82.49 Family history of ischemic heart disease and other diseases of the circulatory system; Z88.0 Allergy status to penicillin ==

== ENCOUNTER → 2021-05-12 | Outpatient (CLI) | payer MEDICARE ==
[~2021-05-12] MED LIST changes: +CIPROFLOXACIN750 MG PO; +DOXYCYCLINE100 M3 PO
== END | disposition home or self-care (01) ==
LOC: COVID19 09:47
PROVIDERS: ATTEND Podiatrist Foot & Ankle Surgery
DX: Z01.818 Encounter for other preprocedural examination (principal); Z20.822 Contact with and (suspected) exposure to COVID-19

== ENCOUNTER → 2021-05-14 | Day surgery (SDC) | payer MEDICARE ==
[~2021-05-14] VITALS: Ht 172.7 cm; Wt 66.2 kg
[2021-05-14 10:44] VITALS: BP 135/60
[2021-05-14 11:00] VITALS: BP 160/80
[2021-05-14 11:19] VITALS: BP 158/77
[2021-05-15 14:09] LABS: ACID FAST SPEC PROCESSING Tissue Grinding (.)
[2021-05-15 14:09] LABS: ACID FAST SPEC PROCESSING Tissue Grinding (.)
[2021-05-15 14:09] LABS: ACID FAST SPEC PROCESSING Tissue Grinding (.)
== END | disposition home or self-care (01) ==
LOC: SDC 05-05 09:30
PROVIDERS: ATTEND Podiatrist
DX: M86.172 Other acute osteomyelitis, left ankle and foot (principal); E11.52 Type 2 diabetes mellitus with diabetic peripheral angiopathy with gangrene; I96 Gangrene, not elsewhere classified; I10 Essential (primary) hypertension; E11.9 Type 2 diabetes mellitus without complications; I25.10 Atherosclerotic heart disease of native coronary artery without angina pectoris; S91.302A Unspecified open wound, left foot, initial encounter; X58.XXXA Exposure to other specified factors, initial encounter; Y93.89 Activity, other specified; Y92.89 Other specified places as the place of occurrence of the external cause; Y99.8 Other external cause status

== ENCOUNTER → 2021-07-04 | Outpatient (CLI) | payer MEDICARE ==
[~2021-07-04] MED LIST changes: +CEFEPIME HYDROCH2 GM IV; +METRONIDAZOLE500 M1 PO
[2021-07-04 15:10] LABS: BASO # 0.1 10*3/uL (0.0-0.1); BASO % 0.5 % (0.0-1.0); EOS # 0.2 10*3/uL (0.0-0.4); EOS % 1.1 % (1.0-4.0); HEMATOCRIT 31.7 % (42.0-52.0); LYMPH # 2.2 10*3/uL (1.3-4.4); LYMPH % 17.1 % (27.0-41.0); MEAN CELL VOLUME 65.6 fl (80.0-94.0); MEAN CORPUSCULAR HGB 18.8 pg (27.0-31.0); MEAN CORPUSCULAR HGB CONC 28.7 g/dl (33.0-37.0); MONO # 0.6 10*3/uL (0.1-1.0); MONO % 4.9 % (3.0-9.0); NEUT # 9.8 10*3/uL (2.3-7.9); NEUT % 75.2 % (47.0-73.0); PLATELET COUNT AUTOMATED 691 10*3/uL (130-400); RED BLOOD COUNT 4.83 10*6/uL (4.50-5.90); WHITE BLOOD COUNT 13.1 10*3/uL (4.8-10.8)
[2021-07-04 15:30] LABS: POTASSIUM 4.4 mmol/L (3.5-5.1)
== END | disposition home or self-care (01) ==
LOC: LAB 14:42
PROVIDERS: ATTEND Podiatrist
DX: Z01.812 Encounter for preprocedural laboratory examination (principal); L98.499 Non-pressure chronic ulcer of skin of other sites with unspecified severity; Z20.822 Contact with and (suspected) exposure to COVID-19

== ENCOUNTER → 2021-07-07 | Outpatient (CLI) | payer MEDICARE | END | disposition home or self-care (01) | LOC: RESCLI 06:52 | PROVIDERS: ATTEND Internal Medicine Nephrology | DX: Z01.818 Encounter for other preprocedural examination (principal); E11.618 Type 2 diabetes mellitus with other diabetic arthropathy; I10 Essential (primary) hypertension; M86.9 Osteomyelitis, unspecified; K21.9 Gastro-esophageal reflux disease without esophagitis; Z88.0 Allergy status to penicillin; Z98.890 Other specified postprocedural states; Z87.891 Personal history of nicotine dependence; Z79.899 Other long term (current) drug therapy ==

== ENCOUNTER → 2021-07-09 | Day surgery (SDC) | payer MEDICARE ==
[~2021-07-09] VITALS: Ht 172.7 cm; Wt 66.2 kg
[2021-07-09 08:29] VITALS: BP 111/67; BP 134/61
[2021-07-09 10:35] VITALS: BP 108/61
[2021-07-09 10:50] VITALS: BP 112/66
[2021-07-09 11:05] VITALS: BP 109/67
[2021-07-10 14:08] LABS: ACID FAST SPEC PROCESSING Tissue Grinding (.)
[2021-07-10 14:08] LABS: ACID FAST SPEC PROCESSING Tissue Grinding (.)
[2021-07-10 14:08] LABS: ACID FAST SPEC PROCESSING Tissue Grinding (.)
== END | disposition home or self-care (01) ==
LOC: SDC 07-04 08:00
PROVIDERS: ATTEND Podiatrist
DX: M86.8X7 Other osteomyelitis, ankle and foot (principal); I25.10 Atherosclerotic heart disease of native coronary artery without angina pectoris; I10 Essential (primary) hypertension; G62.9 Polyneuropathy, unspecified; Z79.899 Other long term (current) drug therapy

== ENCOUNTER 2021-07-23 19:51 | Inpatient (IN) | payer MEDICARE ==
[~2021-07-23] VITALS: Ht 172.7 cm; Wt 67.1 kg
[2021-07-23] VITALS (13 sets, daily range): BP systolic 73–109; BP diastolic 33–70
[~2021-07-23 19:51] MED LIST changes: -CEFEPIME HYDROCH2 GM IV; -METRONIDAZOLE500 M1 PO
[2021-07-23 20:57] LABS: MEAN CELL VOLUME 65.5 fl (80.0-94.0); MEAN CORPUSCULAR HGB 18.5 pg (27.0-31.0); MEAN CORPUSCULAR HGB CONC 28.3 g/dl (33.0-37.0); MEAN PLATELET VOLUME 8.7 fl (9.6-12.3); PLATELET COUNT AUTOMATED 366 10*3/uL (130-400); RED BLOOD COUNT 3.51 10*6/uL (4.50-5.90); WHITE BLOOD COUNT 12.8 10*3/uL (4.8-10.8)
[2021-07-23 21:14] LABS: ALKALINE PHOSPHATASE 128 U/L (45-117); BUN 29 mg/dl (7-24); CHLORIDE 108 mmol/L (98-107); POTASSIUM 4.3 mmol/L (3.5-5.1); SGOT/AST 7 IU/L (3-35); SGPT/ALT 12 U/L (12-78); SODIUM 138 mmol/L (136-145); TOTAL PROTEIN 6.1 gm/dL (6.4-8.2)
[2021-07-23 21:15] LABS: TROPONIN I < 0.015 ng/ml (<0.045)
[2021-07-23 21:22] LABS: BASOPHILS 1 % (0-1); TOTAL CELLS COUNTED 100 #CELLS
[2021-07-23 21:23] LABS: BURR CELLS FEW; OVALOCYTES FEW; PLATELET SUFFICIENCY NORMAL (NORMAL)
[2021-07-23 21:41] LABS: INTERNATIONAL NORM RATIO 1.2 (2.0-3.5)
[2021-07-24] VITALS (20 sets, daily range): BP systolic 90–151; BP diastolic 42–86
[2021-07-24 07:05] LABS: BASO # 0.1 10*3/uL (0.0-0.1); BASO % 0.6 % (0.0-1.0); EOS # 0.1 10*3/uL (0.0-0.4); EOS % 0.5 % (1.0-4.0); HEMATOCRIT 27.5 % (42.0-52.0); LYMPH # 1.5 10*3/uL (1.3-4.4); LYMPH % 14.2 % (27.0-41.0); MEAN CORPUSCULAR HGB 20.6 pg (27.0-31.0); MEAN CORPUSCULAR HGB CONC 29.1 g/dl (33.0-37.0); MEAN PLATELET VOLUME 8.7 fl (9.6-12.3); MONO # 0.7 10*3/uL (0.1-1.0); NEUT # 8.2 10*3/uL (2.3-7.9); NEUT % 76.9 % (47.0-73.0); PLATELET COUNT AUTOMATED 336 10*3/uL (130-400); RED BLOOD COUNT 3.88 10*6/uL (4.50-5.90); RED CELL DISTRI WIDTH 23.5 % (0-14.5); WHITE BLOOD COUNT 10.6 10*3/uL (4.8-10.8)
[2021-07-24 07:19] LABS: MEAN CELL VOLUME 70.9 fl (80.0-94.0)
[2021-07-24 07:21] LABS: CHLORIDE 114 mmol/L (98-107); SODIUM 143 mmol/L (136-145)
[2021-07-24 07:28] LABS: ALBUMIN 1.7 gm/dl (3.1-4.5); ALKALINE PHOSPHATASE 113 U/L (45-117); BUN 26 mg/dl (7-24); CREATININE 1.03 mg/dL (0.70-1.30); SGOT/AST 8 IU/L (3-35); SGPT/ALT 11 U/L (12-78); TOTAL PROTEIN 5.5 gm/dL (6.4-8.2)
[2021-07-25] VITALS (10 sets, daily range): BP systolic 125–173; BP diastolic 65–90
[2021-07-25 06:23] LABS: HEMATOCRIT 25.3 % (42.0-52.0); MEAN CELL VOLUME 70.1 fl (80.0-94.0); MEAN CORPUSCULAR HGB 21.1 pg (27.0-31.0); MEAN PLATELET VOLUME 8.6 fl (9.6-12.3); PLATELET COUNT AUTOMATED 359 10*3/uL (130-400); RED BLOOD COUNT 3.61 10*6/uL (4.50-5.90); RED CELL DISTRI WIDTH 22.9 % (0-14.5); WHITE BLOOD COUNT 8.9 10*3/uL (4.8-10.8)
[2021-07-25 06:26] LABS: ALBUMIN 1.7 gm/dl (3.1-4.5); ALKALINE PHOSPHATASE 102 U/L (45-117); CHLORIDE 110 mmol/L (98-107); CREATININE 0.87 mg/dL (0.70-1.30); SGOT/AST 9 IU/L (3-35); SGPT/ALT 11 U/L (12-78); SODIUM 141 mmol/L (136-145); TOTAL PROTEIN 5.7 gm/dL (6.4-8.2)
[2021-07-25 06:30] LABS: BUN 16 mg/dl (7-24)
[2021-07-25 07:14] LABS: TOTAL CELLS COUNTED 100 #CELLS
[2021-07-25 07:15] LABS: MICROCYTOSIS SLIGHT; PLATELET SUFFICIENCY NORMAL (NORMAL); SCHISTOCYTES FEW
[2021-07-26] VITALS: BP 154/68
[2021-07-26 06:18] LABS: MEAN CELL VOLUME 69.4 fl (80.0-94.0); MEAN CORPUSCULAR HGB 20.8 pg (27.0-31.0); MEAN PLATELET VOLUME 8.7 fl (9.6-12.3); PLATELET COUNT AUTOMATED 416 10*3/uL (130-400); RED CELL DISTRI WIDTH 23.6 % (0-14.5); WHITE BLOOD COUNT 8.8 10*3/uL (4.8-10.8)
[2021-07-26 06:30] LABS: CHLORIDE 107 mmol/L (98-107); POTASSIUM 4.1 mmol/L (3.5-5.1); SODIUM 140 mmol/L (136-145)
[2021-07-26 06:35] LABS: BUN 14 mg/dl (7-24); CREATININE 0.84 mg/dL (0.70-1.30)
[2021-07-26 07:52] LABS: TOTAL CELLS COUNTED 100 #CELLS
[2021-07-26 07:53] LABS: PLATELET SUFFICIENCY HIGH (NORMAL)
[2021-07-26 12:00] VITALS: BP 165/72
[2021-07-26 16:00] VITALS: BP 139/86
[2021-07-26 20:00] VITALS: BP 156/72
[2021-07-27] VITALS: BP 148/68
[2021-07-27 06:54] LABS: BUN 17 mg/dl (7-24); CHLORIDE 107 mmol/L (98-107); CREATININE 0.84 mg/dL (0.70-1.30); POTASSIUM 4.1 mmol/L (3.5-5.1); SODIUM 141 mmol/L (136-145)
[2021-07-27 07:27] LABS: BASO # 0.1 10*3/uL (0.0-0.1); EOS # 0.3 10*3/uL (0.0-0.4); HEMATOCRIT 26.8 % (42.0-52.0); LYMPH # 2.3 10*3/uL (1.3-4.4); LYMPH % 26.8 % (27.0-41.0); MEAN CELL VOLUME 71.5 fl (80.0-94.0); MEAN CORPUSCULAR HGB 21.1 pg (27.0-31.0); MEAN CORPUSCULAR HGB CONC 29.5 g/dl (33.0-37.0); MEAN PLATELET VOLUME 8.6 fl (9.6-12.3); MONO # 0.6 10*3/uL (0.1-1.0); NEUT % 59.3 % (47.0-73.0); NUCLEATED RED BLOOD CELL 0.4 % (0.0-0.0); PLATELET COUNT AUTOMATED 425 10*3/uL (130-400); RED BLOOD COUNT 3.75 10*6/uL (4.50-5.90); RED CELL DISTRI WIDTH 24.3 % (0-14.5); WHITE BLOOD COUNT 8.4 10*3/uL (4.8-10.8)
[2021-07-27 08:00] VITALS: BP 159/89
[2021-07-27 12:00] VITALS: BP 148/78
[2021-07-27 12:06] LABS: ACID FAST SPEC PROCESSING Tissue Grinding (.)
[2021-07-27 16:00] VITALS: BP 158/75
[2021-07-27 20:00] VITALS: BP 122/75
[2021-07-28] VITALS: BP 144/75
[2021-07-28 06:27] LABS: HEMATOCRIT 27.7 % (42.0-52.0); MEAN CORPUSCULAR HGB 20.8 pg (27.0-31.0); MEAN CORPUSCULAR HGB CONC 29.2 g/dl (33.0-37.0); MEAN PLATELET VOLUME 8.5 fl (9.6-12.3); PLATELET COUNT AUTOMATED 435 10*3/uL (130-400); RED CELL DISTRI WIDTH 24.2 % (0-14.5); WHITE BLOOD COUNT 7.9 10*3/uL (4.8-10.8)
[2021-07-28 06:29] LABS: ALBUMIN 2.1 gm/dl (3.1-4.5); BUN 14 mg/dl (7-24); CHLORIDE 104 mmol/L (98-107); CREATININE 0.93 mg/dL (0.70-1.30); POTASSIUM 4.1 mmol/L (3.5-5.1); SGOT/AST 9 IU/L (3-35); SGPT/ALT 12 U/L (12-78); SODIUM 139 mmol/L (136-145)
[2021-07-28 06:32] LABS: ALKALINE PHOSPHATASE 116 U/L (45-117); TOTAL PROTEIN 6.4 gm/dL (6.4-8.2)
[2021-07-28 07:24] LABS: BASOPHILS 1 % (0-1); TOTAL CELLS COUNTED 100 #CELLS
[2021-07-28 07:25] LABS: PLATELET SUFFICIENCY HIGH (NORMAL); POLYCHROMASIA SLIGHT
[2021-07-28 07:26] LABS: MICROCYTOSIS SLIGHT
[2021-07-28 08:00] VITALS: BP 173/71
[2021-07-28 12:00] VITALS: BP 166/75
[2021-07-28 16:00] VITALS: BP 135/64
[2021-07-28 20:00] VITALS: BP 162/75
[2021-07-29 06:26] LABS: HEMATOCRIT 32.2 % (42.0-52.0); MEAN CELL VOLUME 70.8 fl (80.0-94.0); MEAN CORPUSCULAR HGB 20.4 pg (27.0-31.0); MEAN CORPUSCULAR HGB CONC 28.9 g/dl (33.0-37.0); MEAN PLATELET VOLUME 8.4 fl (9.6-12.3); PLATELET COUNT AUTOMATED 490 10*3/uL (130-400); RED BLOOD COUNT 4.55 10*6/uL (4.50-5.90); RED CELL DISTRI WIDTH 23.9 % (0-14.5); WHITE BLOOD COUNT 8.6 10*3/uL (4.8-10.8)
[2021-07-29 06:42] LABS: BUN 17 mg/dl (7-24); CHLORIDE 103 mmol/L (98-107); CREATININE 0.99 mg/dL (0.70-1.30); POTASSIUM 4.3 mmol/L (3.5-5.1); SODIUM 137 mmol/L (136-145)
[2021-07-29 06:51] LABS: PLATELET SUFFICIENCY HIGH (NORMAL); TOTAL CELLS COUNTED 100 #CELLS
[2021-07-29 08:00] VITALS: BP 138/70
[2021-07-29 12:00] VITALS: BP 148/62
[2021-07-29] MEDS ORDERED: CEFEPIME HYDROCH2 GM IV (13:07)
[2021-07-29] MEDS ORDERED: METRONIDAZOLE500 M1 PO (13:07)
[2021-07-29 16:00] VITALS: BP 142/66
[2021-07-29 20:00] VITALS: BP 121/59
[2021-07-30 06:03] LABS: ALBUMIN 2.3 gm/dl (3.1-4.5); ALKALINE PHOSPHATASE 129 U/L (45-117); BUN 20 mg/dl (7-24); CHLORIDE 105 mmol/L (98-107); CREATININE 0.94 mg/dL (0.70-1.30); SGOT/AST 9 IU/L (3-35); SGPT/ALT 14 U/L (12-78); SODIUM 139 mmol/L (136-145); TOTAL PROTEIN 6.7 gm/dL (6.4-8.2)
[2021-07-30 06:15] LABS: BASO # 0.1 10*3/uL (0.0-0.1); BASO % 0.9 % (0.0-1.0); EOS # 0.7 10*3/uL (0.0-0.4); EOS % 6.8 % (1.0-4.0); HEMATOCRIT 29.3 % (42.0-52.0); LYMPH % 20.3 % (27.0-41.0); MEAN CELL VOLUME 70.3 fl (80.0-94.0); MEAN CORPUSCULAR HGB 20.4 pg (27.0-31.0); MEAN PLATELET VOLUME 8.8 fl (9.6-12.3); MONO # 0.6 10*3/uL (0.1-1.0); MONO % 6.3 % (3.0-9.0); NEUT # 6.3 10*3/uL (2.3-7.9); NEUT % 64.2 % (47.0-73.0); PLATELET COUNT AUTOMATED 445 10*3/uL (130-400); RED BLOOD COUNT 4.17 10*6/uL (4.50-5.90); RED CELL DISTRI WIDTH 23.4 % (0-14.5); WHITE BLOOD COUNT 9.8 10*3/uL (4.8-10.8)
[2021-07-30 08:00] VITALS: BP 142/76
[2021-07-30 10:00] VITALS: BP 142/62
[2021-07-30 16:00] VITALS: BP 114/60; BP 140/68
[2021-07-30 20:00] VITALS: BP 122/53
[2021-07-31] VITALS: BP 145/61
[2021-07-31 06:25] LABS: ALBUMIN 2.2 gm/dl (3.1-4.5); ALKALINE PHOSPHATASE 124 U/L (45-117); BUN 23 mg/dl (7-24); CHLORIDE 108 mmol/L (98-107); CREATININE 0.75 mg/dL (0.70-1.30); POTASSIUM 4.2 mmol/L (3.5-5.1); SGOT/AST 12 IU/L (3-35); SGPT/ALT 16 U/L (12-78); SODIUM 140 mmol/L (136-145); TOTAL PROTEIN 6.5 gm/dL (6.4-8.2)
[2021-07-31 06:54] LABS: BASO # 0.1 10*3/uL (0.0-0.1); BASO % 0.7 % (0.0-1.0); EOS # 0.6 10*3/uL (0.0-0.4); EOS % 6.6 % (1.0-4.0); HEMATOCRIT 28.7 % (42.0-52.0); LYMPH # 1.6 10*3/uL (1.3-4.4); LYMPH % 18.9 % (27.0-41.0); MEAN CELL VOLUME 71.6 fl (80.0-94.0); MEAN CORPUSCULAR HGB 20.4 pg (27.0-31.0); MEAN CORPUSCULAR HGB CONC 28.6 g/dl (33.0-37.0); MEAN PLATELET VOLUME 8.8 fl (9.6-12.3); MONO # 0.6 10*3/uL (0.1-1.0); NEUT # 5.6 10*3/uL (2.3-7.9); NEUT % 65.5 % (47.0-73.0); PLATELET COUNT AUTOMATED 435 10*3/uL (130-400); RED BLOOD COUNT 4.01 10*6/uL (4.50-5.90); RED CELL DISTRI WIDTH 23.3 % (0-14.5); WHITE BLOOD COUNT 8.5 10*3/uL (4.8-10.8)
[2021-07-31 08:00] VITALS: BP 119/55
[2021-07-31 08:50] VITALS: BP 142/62
== END 2021-07-31 13:26 | disposition home health service (06) | DRG 576 ==
LOC: ED 19:51 → 5E 22:14 → EDHOLD 22:14 → 5E 07-24 11:05
PROVIDERS: Family Medicine; Hospitalist; Internal Medicine; Physician Assistant; Podiatrist; Social Worker Clinical; ADMIT Internal Medicine; ATTEND Internal Medicine
PROC: 30233N1 Transfusion of Nonautologous Red Blood Cells into Peripheral Vein, Percutaneous Approach (ICD-10-PCS; principal; 2021-07-23)
PROC: 2W5MX2Z Removal of Cast on Left Lower Extremity (ICD-10-PCS; 2021-07-23)
PROC: 0QBM0ZX Excision of Left Tarsal, Open Approach, Diagnostic (ICD-10-PCS; 2021-07-25)
PROC: 0HRNXK3 Replacement of Left Foot Skin with Nonautologous Tissue Substitute, Full Thickness, External Approach (ICD-10-PCS; 2021-07-25)
PROC: 2W1TX6Z Compression of Left Foot using Pressure Dressing (ICD-10-PCS; 2021-07-25)
PROC: 2W3RX1Z Immobilization of Left Lower Leg using Splint (ICD-10-PCS; 2021-07-25)
PROC: 02HV33Z Insertion of Infusion Device into Superior Vena Cava, Percutaneous Approach (ICD-10-PCS; 2021-07-29)
DX: S91.302A Unspecified open wound, left foot, initial encounter (principal); N17.0 Acute kidney failure with tubular necrosis; M86.172 Other acute osteomyelitis, left ankle and foot; D62 Acute posthemorrhagic anemia; E87.2 Acidosis; E44.0 Moderate protein-calorie malnutrition; E11.621 Type 2 diabetes mellitus with foot ulcer; E11.69 Type 2 diabetes mellitus with other specified complication; I95.9 Hypotension, unspecified; E87.8 Other disorders of electrolyte and fluid balance, not elsewhere classified; E86.1 Hypovolemia; E11.65 Type 2 diabetes mellitus with hyperglycemia; L97.529 Non-pressure chronic ulcer of other part of left foot with unspecified severity; E11.42 Type 2 diabetes mellitus with diabetic polyneuropathy; E55.9 Vitamin D deficiency, unspecified; I10 Essential (primary) hypertension; Z79.899 Other long term (current) drug therapy; Z88.0 Allergy status to penicillin; Z68.22 Body mass index [BMI] 22.0-22.9, adult; Z82.49 Family history of ischemic heart disease and other diseases of the circulatory system

== ENCOUNTER → 2021-08-08 | Outpatient (CLI) | payer MEDICARE ==
[~2021-08-08] MED LIST changes: +CEFEPIME HYDROCH2 GM IV; +METRONIDAZOLE500 M1 PO
== END ==
LOC: RESCLI 00:23
PROVIDERS: ATTEND Internal Medicine
DX: E11.618 Type 2 diabetes mellitus with other diabetic arthropathy (principal); I10 Essential (primary) hypertension; M86.9 Osteomyelitis, unspecified; K21.9 Gastro-esophageal reflux disease without esophagitis; Z29.9 Encounter for prophylactic measures, unspecified; Z79.4 Long term (current) use of insulin; Z79.899 Other long term (current) drug therapy; Z87.891 Personal history of nicotine dependence; Z98.890 Other specified postprocedural states

== ENCOUNTER → 2021-09-05 | Outpatient (CLI) | payer MEDICARE ==
[~2021-09-05] MED LIST changes: +ASPIRIN CHEWABL81 MG PO; +IRON325 M1 PO
== END | disposition home or self-care (01) ==
LOC: RESCLI 02:15
PROVIDERS: ATTEND Internal Medicine
DX: E11.618 Type 2 diabetes mellitus with other diabetic arthropathy (principal); I10 Essential (primary) hypertension; M86.9 Osteomyelitis, unspecified; K21.9 Gastro-esophageal reflux disease without esophagitis; D50.9 Iron deficiency anemia, unspecified; Z29.9 Encounter for prophylactic measures, unspecified; Z88.0 Allergy status to penicillin; Z87.891 Personal history of nicotine dependence; Z79.899 Other long term (current) drug therapy

== ENCOUNTER 2021-09-09 11:30 | Emergency (ER) | payer MEDICARE ==
[~2021-09-09] VITALS: Ht 172.7 cm; Wt 66.2 kg
[~2021-09-09 11:30] MED LIST changes: -ASPIRIN CHEWABL81 MG PO; -IRON325 M1 PO
[2021-09-09] MEDS ORDERED: ASPIRIN CHEWABL81 MG PO (11:55)
[2021-09-09] MEDS ORDERED: IRON325 M1 PO (11:56)
== END 2021-09-09 13:13 | disposition left against medical advice (07) ==
LOC: ED 11:30
DX: Z45.2 Encounter for adjustment and management of vascular access device (principal); Z88.0 Allergy status to penicillin; Z79.899 Other long term (current) drug therapy; Z79.82 Long term (current) use of aspirin; Z87.891 Personal history of nicotine dependence

== ENCOUNTER → 2021-09-23 | Outpatient (CLI) | payer MEDICARE ==
[~2021-09-23] MED LIST changes: +ASPIRIN CHEWABL81 MG PO; +DOXYCYCLINE HY100 M3 PO; +IRON325 M1 PO; +TRAMADOL HCL50 MG PO
== END | disposition home or self-care (01) ==
LOC: RESCLI 01:03
PROVIDERS: ATTEND Internal Medicine
DX: Z01.818 Encounter for other preprocedural examination (principal); I10 Essential (primary) hypertension; E11.618 Type 2 diabetes mellitus with other diabetic arthropathy; M86.9 Osteomyelitis, unspecified; E55.9 Vitamin D deficiency, unspecified; K21.9 Gastro-esophageal reflux disease without esophagitis; D50.9 Iron deficiency anemia, unspecified; Z29.9 Encounter for prophylactic measures, unspecified; Z88.0 Allergy status to penicillin; Z87.891 Personal history of nicotine dependence; Z98.890 Other specified postprocedural states; Z79.899 Other long term (current) drug therapy

== ENCOUNTER → 2021-10-01 | Day surgery (SDC) | payer MEDICARE ==
[~2021-10-01] VITALS: Ht 162.5 cm; Wt 88.9 kg
[2021-10-01 08:30] VITALS: BP 156/83
[2021-10-01 10:06] VITALS: BP 129/61
[2021-10-01 10:21] VITALS: BP 125/70
[2021-10-01 10:36] VITALS: BP 130/73
[2021-10-02 10:07] LABS: ACID FAST SPEC PROCESSING Tissue Grinding (.)
== END | disposition home or self-care (01) ==
LOC: SDC 09-26 12:30
PROVIDERS: ATTEND Podiatrist
DX: S91.302A Unspecified open wound, left foot, initial encounter (principal); I10 Essential (primary) hypertension; I25.10 Atherosclerotic heart disease of native coronary artery without angina pectoris; E11.40 Type 2 diabetes mellitus with diabetic neuropathy, unspecified; Z88.0 Allergy status to penicillin; X58.XXXA Exposure to other specified factors, initial encounter; Y93.89 Activity, other specified; Y92.89 Other specified places as the place of occurrence of the external cause; Y99.8 Other external cause status; Z20.822 Contact with and (suspected) exposure to COVID-19

== ENCOUNTER → 2021-10-31 | Outpatient (CLI) | payer MEDICARE ==
[~2021-10-31] MED LIST changes: +CLINDAMYCIN HC300 MG PO; +DALVANCE500 MG IV; +LEVOFLOXACIN750 M2 PO
== END | disposition home or self-care (01) ==
LOC: RESCLI 06:49
PROVIDERS: ATTEND Family Medicine
DX: Z01.818 Encounter for other preprocedural examination (principal); I10 Essential (primary) hypertension; E11.618 Type 2 diabetes mellitus with other diabetic arthropathy; M86.9 Osteomyelitis, unspecified; E55.9 Vitamin D deficiency, unspecified; K21.9 Gastro-esophageal reflux disease without esophagitis; Z29.9 Encounter for prophylactic measures, unspecified; D50.9 Iron deficiency anemia, unspecified; M19.90 Unspecified osteoarthritis, unspecified site; Z79.899 Other long term (current) drug therapy; Z88.0 Allergy status to penicillin; Z98.890 Other specified postprocedural states

== ENCOUNTER → 2022-01-20 | Outpatient (CLI) | payer MEDICARE | END | disposition home or self-care (01) | LOC: RESCLI 00:26 | PROVIDERS: ATTEND Internal Medicine | DX: Z01.818 Encounter for other preprocedural examination (principal); K21.9 Gastro-esophageal reflux disease without esophagitis; D50.9 Iron deficiency anemia, unspecified; I10 Essential (primary) hypertension; E11.618 Type 2 diabetes mellitus with other diabetic arthropathy; Z29.9 Encounter for prophylactic measures, unspecified; Z79.899 Other long term (current) drug therapy; Z88.0 Allergy status to penicillin; Z87.891 Personal history of nicotine dependence ==

== ENCOUNTER → 2022-03-03 | Outpatient (CLI) | payer MEDICARE ==
[~2022-03-03] MED LIST changes: +CEPHALEXIN500 M1 PO; +ERTAPENEM1 GM IV; +VITAMIN D350 MC2 PO
[2022-03-03 14:02] LABS: BASO # 0.1 10*3/uL (0.0-0.1); BASO % 0.8 % (0.0-1.0); EOS # 0.3 10*3/uL (0.0-0.4); HEMATOCRIT 37.3 % (42.0-52.0); LYMPH # 1.9 10*3/uL (1.3-4.4); LYMPH % 14.2 % (27.0-41.0); MEAN CELL VOLUME 69.3 fl (80.0-94.0); MEAN CORPUSCULAR HGB 20.4 pg (27.0-31.0); MEAN CORPUSCULAR HGB CONC 29.5 g/dl (33.0-37.0); MONO # 0.9 10*3/uL (0.1-1.0); MONO % 6.5 % (3.0-9.0); NEUT # 10.2 10*3/uL (2.3-7.9); PLATELET COUNT AUTOMATED 355 10*3/uL (130-400); RED BLOOD COUNT 5.38 10*6/uL (4.50-5.90); RED CELL DISTRI WIDTH 17.2 % (0-14.5); WHITE BLOOD COUNT 13.3 10*3/uL (4.8-10.8)
[2022-03-03 14:26] LABS: ALKALINE PHOSPHATASE 123 U/L (45-117); BUN 18 mg/dl (7-24); CHLORIDE 106 mmol/L (98-107); CREATININE 0.97 mg/dL (0.70-1.30); POTASSIUM 4.2 mmol/L (3.5-5.1); SGOT/AST 17 IU/L (3-35); SGPT/ALT 29 U/L (12-78); SODIUM 138 mmol/L (136-145); TOTAL PROTEIN 7.4 gm/dL (6.4-8.2)
== END | disposition home or self-care (01) ==
LOC: LAB 13:39
PROVIDERS: ATTEND Specialist
DX: E11.621 Type 2 diabetes mellitus with foot ulcer (principal)

== ENCOUNTER → 2023-01-25 | Outpatient (CLI) | payer MEDICARE | END | disposition home or self-care (01) | LOC: RESCLI 14:48 | PROVIDERS: ATTEND Internal Medicine | DX: E11.618 Type 2 diabetes mellitus with other diabetic arthropathy (principal); I10 Essential (primary) hypertension; Z98.890 Other specified postprocedural states; Z82.49 Family history of ischemic heart disease and other diseases of the circulatory system; Z87.891 Personal history of nicotine dependence; Z79.01 Long term (current) use of anticoagulants; Z79.899 Other long term (current) drug therapy ==

== ENCOUNTER → 2023-05-10 | Outpatient (CLI) | payer MEDICARE ==
[2023-05-10 11:53] LABS: BASO # 0.1 10*3/uL (0.0-0.1); BASO % 1.1 % (0.0-1.0); EOS # 0.2 10*3/uL (0.0-0.4); HEMATOCRIT 41.7 % (42.0-52.0); LYMPH # 1.5 10*3/uL (1.3-4.4); LYMPH % 18.9 % (27.0-41.0); MEAN CELL VOLUME 76.1 fl (80.0-94.0); MEAN CORPUSCULAR HGB 24.3 pg (27.0-31.0); MEAN CORPUSCULAR HGB CONC 31.9 g/dl (33.0-37.0); MEAN PLATELET VOLUME 8.8 fl (9.6-12.3); MONO # 0.4 10*3/uL (0.1-1.0); MONO % 5.4 % (3.0-9.0); NEUT # 5.8 10*3/uL (2.3-7.9); NEUT % 71.5 % (47.0-73.0); PLATELET COUNT AUTOMATED 423 10*3/uL (130-400); RED BLOOD COUNT 5.48 10*6/uL (4.50-5.90); RED CELL DISTRI WIDTH 17.4 % (0-14.5); WHITE BLOOD COUNT 8.1 10*3/uL (4.8-10.8)
[2023-05-10 12:24] LABS: POTASSIUM 4.6 mmol/L (3.4-5.1); TOTAL PROTEIN 6.8 gm/dL (6.0-8.0)
== END | disposition home or self-care (01) ==
LOC: RESCLI 02:23
PROVIDERS: Student in an Organized Health Care Education/Training Program; ATTEND Student in an Organized Health Care Education/Training Program
DX: Z00.00 Encounter for general adult medical examination without abnormal findings (principal); I10 Essential (primary) hypertension

== ENCOUNTER → 2023-06-22 | Outpatient (CLI) | payer MEDICARE | END | disposition home or self-care (01) | LOC: RESCLI 00:57 | PROVIDERS: ATTEND Internal Medicine | DX: I10 Essential (primary) hypertension (principal); G62.9 Polyneuropathy, unspecified; E78.2 Mixed hyperlipidemia; E11.618 Type 2 diabetes mellitus with other diabetic arthropathy; Z88.0 Allergy status to penicillin; Z87.891 Personal history of nicotine dependence; Z82.49 Family history of ischemic heart disease and other diseases of the circulatory system; Z98.890 Other specified postprocedural states; Z79.899 Other long term (current) drug therapy ==

== ENCOUNTER → 2023-11-05 | Outpatient (CLI) | payer MEDICARE ==
[2023-11-05 10:45] LABS: ALKALINE PHOSPHATASE 92 U/L (46-116); BUN 20 mg/dl (9-23); CHLORIDE 111 mmol/L (98-107); POTASSIUM 4.6 mmol/L (3.4-5.1); SGPT/ALT 22 U/L (5-49); TOTAL PROTEIN 5.9 gm/dL (6.0-8.0)
== END | disposition home or self-care (01) ==
LOC: RESCLI 09:56 → LAB 09:56
PROVIDERS: Student in an Organized Health Care Education/Training Program; ATTEND Internal Medicine
DX: I10 Essential (primary) hypertension (principal)

== ENCOUNTER → 2024-03-27 | Outpatient (CLI) | payer MEDICARE ==
[2024-03-27 17:35] LABS: URINE CREATININE RANDOM 61.89 mg/dL
== END | disposition home or self-care (01) ==
LOC: RESCLI 01:28
PROVIDERS: Internal Medicine; ATTEND Internal Medicine
DX: E11.618 Type 2 diabetes mellitus with other diabetic arthropathy (principal); I10 Essential (primary) hypertension; Z88.0 Allergy status to penicillin; Z87.891 Personal history of nicotine dependence; Z82.49 Family history of ischemic heart disease and other diseases of the circulatory system; Z98.890 Other specified postprocedural states; Z79.899 Other long term (current) drug therapy

== ENCOUNTER 2024-07-19 18:22 | Emergency (ER) | payer MEDICARE ==
[~2024-07-19] VITALS: Ht 172.7 cm; Wt 76.7 kg
[~2024-07-19 18:22] MED LIST changes: -BUPIVACAINE 0.5% 10 ML VIAL ONE; -BUPIVACAINE 0.5% 30 ML IV ONE; -Bactroban Oint22 GM T; -Ertapenem Sodium 1 GM in SODIUM CHLORIDE 0.9% 50 ML IV ONE; -Ketorolac Tromethamine 30 MG/ML VIAL IV ONE; -Lactated Ringer's Solution 1,000 ML IV ONE; -Lidocaine Hydrochloride 2% 5 ML SDV IM ONE; -MASON NATURAL325 MG PO; -PROPOFOL 200 MG/20 ML VIAL IV ONE; -VIBRAMYCIN HYC100 MG PO; -Vancomycin Hydrochloride 1,000 MG VIAL ONE; -Vancomycin Hydrochloride 1,000 MG VIAL T ONE
== END 2024-07-19 20:56 | disposition home or self-care (01) ==
LOC: ED 18:22
DX: T85.628A Displacement of other specified internal prosthetic devices, implants and grafts, initial encounter (principal); E11.9 Type 2 diabetes mellitus without complications; Z88.0 Allergy status to penicillin; Z79.899 Other long term (current) drug therapy; Z79.82 Long term (current) use of aspirin; Z79.84 Long term (current) use of oral hypoglycemic drugs; Z89.412 Acquired absence of left great toe; Z87.891 Personal history of nicotine dependence; Y83.8 Other surgical procedures as the cause of abnormal reaction of the patient, or of later complication, without mention of misadventure at the time of the procedure; Y92.89 Other specified places as the place of occurrence of the external cause

== ENCOUNTER → 2024-07-19 | Day surgery (SDC) | payer MEDICARE ==
[~2024-07-19] VITALS: Ht 172.7 cm; Wt 80.3 kg
[~2024-07-19] MED LIST changes: +ASPIRIN ADULT L81 M1 PO; +BUPIVACAINE 0.5% 10 ML VIAL ONE; +BUPIVACAINE 0.5% 30 ML IV ONE; +Bactroban Oint22 GM T; +CARVEDILOL12.5 MG PO; +Ertapenem Sodium 1 GM in SODIUM CHLORIDE 0.9% 50 ML IV ONE; +JARDIANCE25 MG PO; +Ketorolac Tromethamine 30 MG/ML VIAL IV ONE; +LOSARTAN POTAS100 MG PO; +Lactated Ringer's Solution 1,000 ML IV ONE; +Lidocaine Hydrochloride 2% 5 ML SDV IM ONE; +MASON NATURAL325 MG PO; +NORVASC5 MG PO; +OXYCODONE HCL5 MG PO; +PROPOFOL 200 MG/20 ML VIAL IV ONE; +VIBRAMYCIN HYC100 MG PO; +Vancomycin Hydrochloride 1,000 MG VIAL ONE; +Vancomycin Hydrochloride 1,000 MG VIAL T ONE; +ZYVOX600 MG PO
[2024-07-19 08:45] VITALS: BP 146/65
[2024-07-19 10:42] VITALS: BP 160/71
[2024-07-19 10:57] VITALS: BP 158/63
[2024-07-19 11:05] VITALS: BP 150/63
== END | disposition home or self-care (01) ==
LOC: SDC 07-14 09:30
PROVIDERS: ATTEND Podiatrist
DX: T84.84XA Pain due to internal orthopedic prosthetic devices, implants and grafts, initial encounter (principal); L90.9 Atrophic disorder of skin, unspecified; I10 Essential (primary) hypertension; E11.40 Type 2 diabetes mellitus with diabetic neuropathy, unspecified; Z87.891 Personal history of nicotine dependence; Z88.0 Allergy status to penicillin; Z79.82 Long term (current) use of aspirin; Z79.899 Other long term (current) drug therapy; X58.XXXA Exposure to other specified factors, initial encounter

== ENCOUNTER → 2024-07-21 | Day surgery (SDC) | payer MEDICARE ==
[~2024-07-21] VITALS: Ht 165.1 cm; Wt 64.4 kg
[~2024-07-21] MED LIST changes: +Bactroban Oint22 GM T; +Ertapenem Sodium 1 GM in SODIUM CHLORIDE 0.9% 50 ML IV ONE; +HEPARIN SODIUM 300 UNITS/3 ML SYR IV ONE; +Lactated Ringer's Solution 1,000 ML IV ONE; +Lactated Ringer's Solution 1,000 ML IV SCH; +Lidocaine Hydrochloride 2% 5 ML SDV IM ONE; +MASON NATURAL325 MG PO; +PROPOFOL 200 MG/20 ML VIAL IV ONE; +fentaNYL CITRATE 100 MCG/2 ML VIAL IV ONE
[2024-07-21 13:38] VITALS: BP 114/60
[2024-07-21 16:44] VITALS: BP 151/77
[2024-07-21 17:00] VITALS: BP 165/82
== END | disposition home or self-care (01) ==
LOC: SDC 07-20 14:45
PROVIDERS: ATTEND Podiatrist
DX: T84.84XA Pain due to internal orthopedic prosthetic devices, implants and grafts, initial encounter (principal); T84.018A Broken internal joint prosthesis, other site, initial encounter; I10 Essential (primary) hypertension; E11.40 Type 2 diabetes mellitus with diabetic neuropathy, unspecified; Z87.891 Personal history of nicotine dependence; Z88.0 Allergy status to penicillin; Z79.82 Long term (current) use of aspirin; Z79.899 Other long term (current) drug therapy; Z98.890 Other specified postprocedural states; Y82.8 Other medical devices associated with adverse incidents; Y92.89 Other specified places as the place of occurrence of the external cause

== ENCOUNTER 2024-08-02 08:03 | Inpatient (IN) | payer MEDICARE ==
[~2024-08-02] VITALS: Ht 165.1 cm; Wt 72.6 kg
[2024-08-02] VITALS (7 sets, daily range): BP systolic 127–184; BP diastolic 58–80
[~2024-08-02 08:03] MED LIST changes: -Bactroban Oint22 GM T; -Ertapenem Sodium 1 GM in SODIUM CHLORIDE 0.9% 50 ML IV ONE; -HEPARIN SODIUM 300 UNITS/3 ML SYR IV ONE; -Lactated Ringer's Solution 1,000 ML IV ONE; -Lactated Ringer's Solution 1,000 ML IV SCH; -Lidocaine Hydrochloride 2% 5 ML SDV IM ONE; -MASON NATURAL325 MG PO; -PROPOFOL 200 MG/20 ML VIAL IV ONE; -fentaNYL CITRATE 100 MCG/2 ML VIAL IV ONE
[2024-08-02] MEDS ORDERED: Ertapenem Sodium 1 GM in SODIUM CHLORIDE 0.9% 50 ML IV ONE (08:15)
[2024-08-02] MEDS ORDERED: Vancomycin Hydrochloride 1,000 MG VIAL T ONE (08:50)
[2024-08-02] MEDS ORDERED: Lactated Ringer's Solution 1,000 ML IV ONE (09:00)
[2024-08-02] MEDS ORDERED: PROPOFOL 200 MG/20 ML VIAL IV ONE (12:10)
[2024-08-02] MEDS ORDERED: fentaNYL CITRATE 100 MCG/2 ML VIAL IV ONE (12:10)
[2024-08-02] MEDS ORDERED: Midazolam Hydrochloride 2 MG/2 ML VIAL IV ONE (12:10)
[2024-08-02] MEDS ORDERED: DEXTROSE 10 % IN WATER 250 ML IV PRN (14:40)
[2024-08-02] MEDS ORDERED: BISACODYL 5 MG TAB PO PRN (14:40)
[2024-08-02] MEDS ORDERED: ACETAMINOPHEN 325 MG TAB PO PRN (14:40)
[2024-08-02] MEDS ORDERED: Acetaminophen/Hydrocodone 5 MG/325 MG TABLET PO PRN (14:40)
[2024-08-02] MEDS ORDERED: Ondansetron Hydrochloride 4 MG/2 ML VIAL IV PRN (14:40)
[2024-08-02] MEDS ORDERED: HEPARIN SODIUM 300 UNITS/3 ML SYR IV SCH (15:05)
[2024-08-02] MEDS ORDERED: INSULIN LISPRO 1 UNIT/0.01 ML SQ SCH (16:30)
[2024-08-02] MEDS ORDERED: CARVEDILOL 12.5 MG TAB PO SCH (22:00)
[2024-08-03 06:06] LABS: ALKALINE PHOSPHATASE 192 U/L (46-116); BUN 18 mg/dl (9-23); CHLORIDE 109 mmol/L (98-107); POTASSIUM 4.4 mmol/L (3.4-5.1); SGPT/ALT 16 U/L (5-49); TOTAL PROTEIN 5.7 gm/dL (6.0-8.0)
[2024-08-03 06:15] LABS: BASO # 0.1 10*3/uL (0.0-0.1); BASO % 1.1 % (0.0-1.0); EOS # 0.4 10*3/uL (0.0-0.4); EOS % 3.7 % (1.0-4.0); HEMATOCRIT 29.1 % (42.0-52.0); LYMPH % 19.2 % (27.0-41.0); MEAN CORPUSCULAR HGB 19.9 pg (27.0-31.0); MEAN CORPUSCULAR HGB CONC 29.2 g/dl (33.0-37.0); MEAN PLATELET VOLUME 9.4 fl (9.6-12.3); MONO # 0.7 10*3/uL (0.1-1.0); MONO % 6.2 % (3.0-9.0); NEUT # 7.2 10*3/uL (2.3-7.9); NEUT % 68.7 % (47.0-73.0); PLATELET COUNT AUTOMATED 447 10*3/uL (130-400); RED BLOOD COUNT 4.28 10*6/uL (4.50-5.90); RED CELL DISTRI WIDTH 16.3 % (0-14.5); WHITE BLOOD COUNT 10.5 10*3/uL (4.8-10.8)
[2024-08-03 08:00] VITALS: BP 157/69
[2024-08-03 09:30] VITALS: BP 152/78
[2024-08-03] MEDS ORDERED: Losartan Potassium 100 MG TABLET PO SCH (10:00)
[2024-08-03] MEDS ORDERED: Enoxaparin Sodium 40 MG/0.4 ML SYR SC SCH (10:00)
[2024-08-03] MEDS ORDERED: LINAGLIPTIN 5 MG TAB PO SCH (10:00)
[2024-08-03] MEDS ORDERED: ASPIRIN, CHEWABLE 81 MG TAB PO SCH (10:00)
[2024-08-03] MEDS ORDERED: amLODIPine besylate 5 MG TAB PO SCH (10:00)
[2024-08-03 12:00] VITALS: BP 159/72
[2024-08-03 16:00] VITALS: BP 166/69
[2024-08-03 20:12] VITALS: BP 153/95
[2024-08-03] MEDS ORDERED: MUPIROCIN 15 GM TUBE T SCH (22:00)
[2024-08-04 06:19] LABS: RETICULOCYTE % 2.05 % (0.50-2.50)
[2024-08-04 08:00] VITALS: BP 154/64
[2024-08-04 12:00] VITALS: BP 149/56
[2024-08-04] MEDS ORDERED: FERROUS SULFATE 325 MG TAB PO SCH (12:32)
[2024-08-04 16:00] VITALS: BP 139/77
[2024-08-04] MEDS ORDERED: Acetaminophen/Hydrocodone 5 MG/325 MG TABLET PO SCH (16:00)
[2024-08-04 20:00] VITALS: BP 165/70
[2024-08-05 08:00] VITALS: BP 153/64
[2024-08-05] MEDS ORDERED: Bactroban Oint22 GM T (09:30)
[2024-08-05] MEDS ORDERED: MASON NATURAL325 MG PO (09:30)
[2024-08-05] MEDS ORDERED: HYDROCODONE-AC1 EAC1 PO (09:30)
[2024-08-05 10:00] VITALS: BP 164/82
[2024-08-05 11:30] LABS: BASO # 0.1 10*3/uL (0.0-0.1); BASO % 0.8 % (0.0-1.0); EOS # 0.4 10*3/uL (0.0-0.4); EOS % 4.4 % (1.0-4.0); LYMPH # 1.6 10*3/uL (1.3-4.4); LYMPH % 17.9 % (27.0-41.0); MEAN CORPUSCULAR HGB 19.6 pg (27.0-31.0); MEAN CORPUSCULAR HGB CONC 28.8 g/dl (33.0-37.0); MONO # 0.5 10*3/uL (0.1-1.0); MONO % 5.5 % (3.0-9.0); NEUT # 6.2 10*3/uL (2.3-7.9); NEUT % 70.6 % (47.0-73.0); PLATELET COUNT AUTOMATED 553 10*3/uL (130-400); RED BLOOD COUNT 4.85 10*6/uL (4.50-5.90); RED CELL DISTRI WIDTH 16.4 % (0-14.5); WHITE BLOOD COUNT 8.7 10*3/uL (4.8-10.8)
[2024-08-05 11:57] LABS: BUN 21 mg/dl (9-23); CHLORIDE 106 mmol/L (98-107); POTASSIUM 4.5 mmol/L (3.4-5.1)
[2024-08-05 12:00] VITALS: BP 140/73
== END 2024-08-05 14:05 | DRG 564 ==
LOC: SDC 08:03 → 4E 13:22
PROVIDERS: Internal Medicine; Registered Nurse; ADMIT Internal Medicine; ATTEND Internal Medicine
PROC: 0QPKX5Z Removal of External Fixation Device from Left Fibula, External Approach (ICD-10-PCS; principal; 2024-08-02)
PROC: 0QPHX5Z Removal of External Fixation Device from Left Tibia, External Approach (ICD-10-PCS; 2024-08-02)
DX: T87.89 Other complications of amputation stump (principal); E43 Unspecified severe protein-calorie malnutrition; M86.8X6 Other osteomyelitis, lower leg; R26.2 Difficulty in walking, not elsewhere classified; E65 Localized adiposity; E11.69 Type 2 diabetes mellitus with other specified complication; D50.9 Iron deficiency anemia, unspecified; D75.839 Thrombocytosis, unspecified; Z88.0 Allergy status to penicillin; Z48.89 Encounter for other specified surgical aftercare; Z82.49 Family history of ischemic heart disease and other diseases of the circulatory system; Z68.26 Body mass index [BMI] 26.0-26.9, adult

== ENCOUNTER → 2024-08-16 | Day surgery (SDC) | payer MEDICARE ==
[~2024-08-16] VITALS: Ht 165.1 cm; Wt 72.6 kg
[~2024-08-16] MED LIST changes: +Bactroban Oint22 GM T; +HYDROmorphONE Hydrochloride 0.5 MG/0.5 ML SYRINGE IV SCH; +Lactated Ringer's Solution 1,000 ML IV ONE; +MASON NATURAL325 MG PO; +Midazolam Hydrochloride 2 MG/2 ML VIAL IV ONE; +NITROGLYCERIN 1 IN PACKET T ONE; +Ondansetron Hydrochloride 4 MG/2 ML VIAL IV ONE; +PROPOFOL 200 MG/20 ML VIAL IV ONE; +VIBRAMYCIN HYC100 MG PO; +Vancomycin Hydrochloride 250 ML IV ONE; +fentaNYL CITRATE 100 MCG/2 ML VIAL IV ONE
[2024-08-16 07:35] VITALS: BP 142/59
[2024-08-16 10:54] VITALS: BP 90/35
[2024-08-16 11:09] VITALS: BP 112/42
[2024-08-16 11:24] VITALS: BP 121/54
[2024-08-17 14:10] LABS: ACID FAST SPEC PROCESSING Tissue Grinding (.)
== END | disposition home or self-care (01) ==
LOC: SDC 08-11 13:15
PROVIDERS: ATTEND Podiatrist
DX: S93.121A Dislocation of metatarsophalangeal joint of right great toe, initial encounter (principal); S93.111A Dislocation of interphalangeal joint of right great toe, initial encounter; M62.461 Contracture of muscle, right lower leg; M62.471 Contracture of muscle, right ankle and foot; M89.8X7 Other specified disorders of bone, ankle and foot; I10 Essential (primary) hypertension; E11.40 Type 2 diabetes mellitus with diabetic neuropathy, unspecified; E43 Unspecified severe protein-calorie malnutrition; Z68.25 Body mass index [BMI] 25.0-25.9, adult; Z87.891 Personal history of nicotine dependence; Z98.890 Other specified postprocedural states; Z88.0 Allergy status to penicillin; Z79.82 Long term (current) use of aspirin; Z79.891 Long term (current) use of opiate analgesic; Z79.899 Other long term (current) drug therapy; X58.XXXA Exposure to other specified factors, initial encounter; Y93.89 Activity, other specified; Y92.89 Other specified places as the place of occurrence of the external cause; Y99.8 Other external cause status

== ENCOUNTER 2024-12-11 09:09 | Emergency (ER) | payer MEDICARE, MEDICAID ==
[~2024-12-11] VITALS: Ht 172.7 cm; Wt 80.7 kg
[~2024-12-11 09:09] MED LIST changes: +CLEOCIN HCL300 MG PO; -HYDROmorphONE Hydrochloride 0.5 MG/0.5 ML SYRINGE IV SCH; -Lactated Ringer's Solution 1,000 ML IV ONE; -Midazolam Hydrochloride 2 MG/2 ML VIAL IV ONE; -NITROGLYCERIN 1 IN PACKET T ONE; -Ondansetron Hydrochloride 4 MG/2 ML VIAL IV ONE; -PROPOFOL 200 MG/20 ML VIAL IV ONE; -Vancomycin Hydrochloride 250 ML IV ONE; -fentaNYL CITRATE 100 MCG/2 ML VIAL IV ONE
== END 2024-12-11 10:21 | disposition home or self-care (01) ==
LOC: ED 09:09
DX: R22.0 Localized swelling, mass and lump, head (principal); T85.848A Pain due to other internal prosthetic devices, implants and grafts, initial encounter; I10 Essential (primary) hypertension; E11.9 Type 2 diabetes mellitus without complications; Z88.0 Allergy status to penicillin; Z98.890 Other specified postprocedural states; Z90.49 Acquired absence of other specified parts of digestive tract; Z87.891 Personal history of nicotine dependence

== ENCOUNTER 2025-01-31 13:16 | Emergency (ER) | payer MEDICARE ==
[~2025-01-31] VITALS: Wt 77.1 kg
[2025-01-31] MEDS ORDERED: VIBRAMYCIN100 MG PO (14:18)
== END 2025-01-31 14:57 | disposition home or self-care (01) ==
LOC: ED 13:16
DX: C44.42 Squamous cell carcinoma of skin of scalp and neck (principal); I10 Essential (primary) hypertension; E11.9 Type 2 diabetes mellitus without complications; Z79.82 Long term (current) use of aspirin; Z79.899 Other long term (current) drug therapy; Z88.0 Allergy status to penicillin; Z98.890 Other specified postprocedural states

== ENCOUNTER → 2025-04-02 | Outpatient (CLI) | payer MEDICARE ==
[~2025-04-02] MED LIST changes: +VIBRAMYCIN100 MG PO
== END | disposition home or self-care (01) ==
LOC: RESCLI 00:54
PROVIDERS: ATTEND Internal Medicine
DX: I10 Essential (primary) hypertension (principal); E11.618 Type 2 diabetes mellitus with other diabetic arthropathy

== ENCOUNTER → 2025-05-14 | Outpatient (CLI) | payer MEDICARE | END | disposition home or self-care (01) | LOC: LAB 10:46 | PROVIDERS: ATTEND Internal Medicine | DX: D50.9 Iron deficiency anemia, unspecified (principal) ==